=== PATIENT | male | born 1985 | race Hispanic/Latino ===

== ENCOUNTER 2019-06-22 13:11 | Emergency (ER) | payer SELFPAY ==
[2019-06-22] MEDS ORDERED: AMOX/K CLAV 875 MG TAB ONE (14:23)
[2019-06-22] MEDS ORDERED: TETANUS & DIPHTHERIA TOX,ADULT 0.5 ML VIAL ONE (14:24)
--- NOTE | 2019-06-22 14:47 | RAD REPORT ---
EXAM DESCRIPTION: RAD - Forearm Left - 06/22/2019 2:41 pm CLINICAL HISTORY: Pain;Animal bite COMPARISON: No comparisons FINDINGS: Soft tissue swelling is seen about the forearm. No fracture or foreign body is evident.
--- NOTE | 2019-06-22 14:52 | ER ---
Nurse's Notes [facility] Name: Santos Francisco Age: 33 yrs Sex: Male : 1985 Arrival Date: 06/22/2019 Time: 13:14 Bed 15 Private MD: Diagnosis: Bitten by dog;Puncture wound without foreign body of left forearm Presentation: 06/22 13:15 Presenting complaint: EMS states: DOG BITES TO BUE FROM KNOWN ANIMAL. ANIMAL CONTROL ON bp SCENE. Transition of care: patient was not received from another setting of care. Onset of symptoms is unknown. Risk Assessment: Do you want to hurt yourself or someone else? Patient reports no desire to harm self or others. Initial Sepsis Screen: Does the patient meet any 2 criteria? No. Patient's initial sepsis screen is negative. Does the patient have a suspected source of infection? No. Patient's initial sepsis screen is negative. Care prior to arrival: None. 13:15 Method Of Arrival: EMS: [facility] bp 13:15 Acuity: OUSMANE 4 bp Triage Assessment: 13:17 Bite description: bite sustained to right arm and left arm by a dog, animal bp information: vaccination(s) is current. General: Appears in no apparent distress. comfortable, Behavior is cooperative, appropriate for age, anxious. Pain: Complains of pain in right arm and left arm. EENT: No deficits noted. Neuro: No deficits noted. Cardiovascular: No deficits noted. Respiratory: No deficits noted. GI: No signs and/or symptoms were reported involving the gastrointestinal system. : No signs and/or symptoms were reported regarding the genitourinary system. Derm: No deficits noted. Musculoskeletal: No deficits noted. Historical: - Allergies: 13:17 No Known Allergies; bp - Home Meds: 13:17 None [Active]; bp - PMHx: 13:17 None; bp - PSHx: 13:17 None; bp - Immunization history:: Last tetanus immunization: unknown. - Social history:: Smoking status: unknown. - Ebola Screening: : No symptoms or risks identified at this time. Screenin:21 Abuse screen: Denies threats or abuse. Denies injuries from another. Nutritional bp screening: No deficits noted. Tuberculosis screening: No symptoms or risk factors identified. Fall Risk None identified. Assessment: 13:15 General: SEE TRIAGE NOTE. Derm: Skin is intact, is healthy with good turgor, Skin is bp pink, warm \T\ dry. Injury Description: Bite sustained to left arm and right arm caused by a dog, is superficial. 14:40 Reassessment: WOUND CARE COMPLETED. NO ACTIVE BLEEDING. REPORT BY ANIMAL CONTROL bp COMPLETED. Vital Signs: 13:15 BP 136 / 78; Pulse 85; Resp 16; Temp 98.2(O); Pulse Ox 100% ; Weight 108.86 kg; Height bp 5 ft. 11 in. (180.34 cm); 14:42 BP 131 / 86; Pulse 70; Resp 16; Pulse Ox 98% ; bp 13:15 Body Mass Index 33.47 (108.86 kg, 180.34 cm) bp ED Course: 13:14 Patient arrived in ED. bp 13:15 Arm band placed on. bp 13:16 Triage completed. bp 13:16 Israel Duarte FNP-C is PHCP. la1 13:16 Duncan Brown MD is Attending Physician. la1 13:21 Patient has correct armband on for positive identification. Bed in low position. Call bp light in reach. Side rails up X2. 13:27 PHCP role handed off by Israel Duarte FNP-C snw 13:27 Keara Tabares FNP-C is PHCP. snw 13:58 Александр Montesinos, RN is Primary Nurse. bp 14:41 Forearm Left XRAY In Process Unspecified. EDMS 14:41 Wound care: to puncture located on left arm was cleaned with Hibiclens, dressed with bp Neosporin, Patient tolerated well. 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 Exp: bp 05/06/2021. Lot #: [id number]. } Route: IM; Site: right deltoid; 14:00 Drug: Augmentin 875 mg Route: PO; bp Outcome: 14:51 Discharge ordered by . snw 15:05 Patient left the ED. bd Signatures: Dispatcher [employer] EDMS Dulce Maria Ramirez Keara Tabares FNP-C FNP-Csnw Israel Duarte FNP-C FNP-Cla1 Александр Montesinos, RN RN bp Heavenly De La Rosa lt1 Corrections: (The following items were deleted from the chart) 13:19 13:15 BP 136 / 78; Pulse 85bpm; Resp 16bpm; Pulse Ox 100%; Temp 98.2F Oral; lt1 bp
--- NOTE | 2019-06-22 14:52 | EDPHYS ---
Physician Documentation [facility] Name: Santos Francisco Age: 33 yrs Sex: Male : 1985 Arrival Date: 06/22/2019 Time: 13:14 Bed 15 Private MD: ED Physician Duncan Brown HPI: 06/22 14:05 This 33 yrs old Male presents to ER via EMS with complaints of Dog Bite. snw 14:05 The patient was bitten on the dorsal aspect of left forearm and palmar aspect of left snw forearm, by a dog, while trying to stop animals from fighting, at home. Onset: The symptoms/episode began/occurred suddenly, just prior to arrival. Animal information: The animal was reported to appear healthy. The animal is known and can be quarantined, Animal control has been notified. Secondary to the bite the patient reports multiple puncture wounds, that are deep. Associated signs and symptoms: The patient has no apparent associated signs or symptoms. Severity of symptoms: At their worst the symptoms were moderate. The patient has not experienced similar symptoms in the past. The patient has not recently seen a physician. Historical: - Allergies: 13:17 No Known Allergies; bp - Home Meds: 13:17 None [Active]; bp - PMHx: 13:17 None; bp - PSHx: 13:17 None; bp - Immunization history:: Last tetanus immunization: unknown. - Social history:: Smoking status: unknown. - Ebola Screening: : No symptoms or risks identified at this time. ROS: 14:03 Constitutional: Negative for fever, chills, and weight loss, Eyes: Negative for injury, snw pain, redness, and discharge, ENT: Negative for injury, pain, and discharge, Neck: Negative for injury, pain, and swelling, Cardiovascular: Negative for chest pain, palpitations, and edema, Respiratory: Negative for shortness of breath, cough, wheezing, and pleuritic chest pain, Abdomen/GI: Negative for abdominal pain, nausea, vomiting, diarrhea, and constipation, Back: Negative for injury and pain, : Negative for injury, bleeding, discharge, and swelling, MS/Extremity: Negative for injury and deformity, Neuro: Negative for headache, weakness, numbness, tingling, and seizure, Psych: Negative for depression, anxiety, suicide ideation, homicidal ideation, and hallucinations. 14:03 Skin: Positive for puncture, of the dorsal aspect of left forearm and palmar aspect of left forearm. Exam: 14:02 Constitutional: This is a well developed, well nourished patient who is awake, alert, snw and in no acute distress. Head/Face: Normocephalic, atraumatic. Eyes: Pupils equal round and reactive to light, extra-ocular motions intact. Lids and lashes normal. Conjunctiva and sclera are non-icteric and not injected. Cornea within normal limits. Periorbital areas with no swelling, redness, or edema. ENT: Nares patent. No nasal discharge, no septal abnormalities noted. Tympanic membranes are normal and external auditory canals are clear. Oropharynx with no redness, swelling, or masses, exudates, or evidence of obstruction, uvula midline. Mucous membranes moist. Neck: Trachea midline, no thyromegaly or masses palpated, and no cervical lymphadenopathy. Supple, full range of motion without nuchal rigidity, or vertebral point tenderness. No Meningismus. Chest/axilla: Normal chest wall appearance and motion. Nontender with no deformity. No lesions are appreciated. Cardiovascular: Regular rate and rhythm with a normal S1 and S2. No gallops, murmurs, or rubs. Normal PMI, no JVD. No pulse deficits. Respiratory: Lungs have equal breath sounds bilaterally, clear to auscultation and percussion. No rales, rhonchi or wheezes noted. No increased work of breathing, no retractions or nasal flaring. Abdomen/GI: Soft, non-tender, with normal bowel sounds. No distension or tympany. No guarding or rebound. No evidence of tenderness throughout. Back: No spinal tenderness. No costovertebral tenderness. Full range of motion. MS/ Extremity: Pulses equal, no cyanosis. Neurovascular intact. Full, normal range of motion. Neuro: Awake and alert, GCS 15, oriented to person, place, time, and situation. Cranial nerves II-XII grossly intact. Motor strength 5/5 in all extremities. Sensory grossly intact. Cerebellar exam normal. Normal gait. Psych: Awake, alert, with orientation to person, place and time. Behavior, mood, and affect are within normal limits. 14:02 Skin: Appearance: normal except for affected area, injury, bite(s), deep, of the dorsal aspect of left forearm and palmar aspect of left forearm, puncture(s), that are deep. Vital Signs: 13:15 BP 136 / 78; Pulse 85; Resp 16; Temp 98.2(O); Pulse Ox 100% ; Weight 108.86 kg; Height bp 5 ft. 11 in. (180.34 cm); 14:42 BP 131 / 86; Pulse 70; Resp 16; Pulse Ox 98% ; bp 13:15 Body Mass Index 33.47 (108.86 kg, 180.34 cm) bp MDM: 13:16 Patient medically screened. la1 14:52 Data reviewed: vital signs, nurses notes. Data interpreted: Pulse oximetry: on room air snw is 98 %. Interpretation: normal. Counseling: I had a detailed discussion with the patient and/or guardian regarding: the historical points, exam findings, and any diagnostic results supporting the discharge/admit diagnosis, the presence of at least one elevated blood pressure reading (>120/80) during this emergency department visit, radiology results, the need for outpatient follow up, to return to the emergency department if symptoms worsen or persist or if there are any questions or concerns that arise at home. Special discussion: I have referred the patient to see his PCP for further evaluation of high blood pressure. I discussed in detail with the patient the higher chance of wound infection based on his presenting history. Based on the history and exam findings, there is no indication for further emergent testing or inpatient evaluation. I discussed with the patient/guardian the need to see the primary care provider for further evaluation of the symptoms. 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 Exp: bp 05/06/2021. Lot #: [id number]. } Route: IM; Site: right deltoid; 14:00 Drug: Augmentin 875 mg Route: PO; bp Disposition: 16:42 Co-signature as Attending Physician, Duncan Brown MD I agree with the assessment and riley plan of care. Disposition: 06/22/19 14:51 Discharged to Home. Impression: Bitten by dog, Puncture wound without foreign body of left forearm. - Condition is Stable. - Discharge Instructions: Delayed Wound Closure, Puncture Wound, Wound Care, Animal Bite. - Prescriptions for Augmentin 875- 125 mg Oral Tablet - take 1 tablet by ORAL route every 12 hours for 10 days; 20 tablet. Mobic 7.5 mg Oral Tablet - take 1 tablet by ORAL route once daily take with food; 20 tablet. - Work release form, Medication Reconciliation Form, Thank You Letter, Antibiotic Education, Prescription Opioid Use form. - Follow up: Emergency Department; When: As needed; Reason: Worsening of condition. Follow up: Private Physician; When: 2 - 3 days; Reason: Recheck today's complaints, Continuance of care, Re-evaluation by your physician. Signatures: Dispatcher [employer] EDMS Dulce Maria Ramirez Corey, MD MD cha Therrien, Shelly, TRACTION POWER ENGINEER-C TRACTION POWER ENGINEER-Csnw Israel Duarte, TRACTION POWER ENGINEER-C TRACTION POWER ENGINEER-Cla1 Александр Montesinos, RN RN bp Corrections: (The following items were deleted from the chart) 14:52 14:51 06/22/2019 14:51 Discharged to Home. Impression: Bitten by dog. Condition is snw Stable. Discharge Instructions: Delayed Wound Closure, Puncture Wound, Wound Care, Animal Bite. Prescriptions for Augmentin 875-125 mg Oral Tablet - take 1 tablet by ORAL route every 12 hours for 10 days; 20 tablet, Mobic 7.5 mg Oral Tablet - take 1 tablet by ORAL route once daily take with food; 20 tablet. and Forms are Work release form, Medication Reconciliation Form, Thank You Letter, Antibiotic Education, Prescription Opioid Use. Follow up: Emergency Department; When: As needed; Reason: Worsening of condition. Follow up: Private Physician; When: 2 - 3 days; Reason: Recheck today's complaints, Continuance of care, Re-evaluation by your physician. snw 15:05 14:52 06/22/2019 14:51 Discharged to Home. Impression: Bitten by dog; Puncture wound bd without foreign body of left forearm. Condition is Stable. Discharge Instructions: Delayed Wound Closure, Puncture Wound, Wound Care, Animal Bite. Prescriptions for Augmentin 875-125 mg Oral Tablet - take 1 tablet by ORAL route every 12 hours for 10 days; 20 tablet, Mobic 7.5 mg Oral Tablet - take 1 tablet by ORAL route once daily take with food; 20 tablet. and Forms are Work release form, Medication Reconciliation Form, Thank You Letter, Antibiotic Education, Prescription Opioid Use. Follow up: Emergency Department; When: As needed; Reason: Worsening of condition. Follow up: Private Physician; When: 2 - 3 days; Reason: Recheck today's complaints, Continuance of care, Re-evaluation by your physician. snw
[2019-06-22 15:19] VITALS: TEMP 98.2
[2019-06-22 15:20] VITALS: BP 131/86; O2SAT 98
== END 2019-06-22 15:05 | disposition home or self-care (01) ==
LOC: ER 13:11
DX: S51.832A Puncture wound without foreign body of left forearm, initial encounter (principal); W54.0XXA Bitten by dog, initial encounter; Y93.9 Activity, unspecified; Y92.9 Unspecified place or not applicable; Z23 Encounter for immunization
CPT/HCPCS: 90471; 90714; 99284

== ENCOUNTER 2019-12-10 14:53 | Emergency (ER) | payer SELFPAY ==
[2019-12-10] MEDS ORDERED: MIDAZOLAM HCL 2 MG/2 ML INJ ONE ×2 (15:05→17:18)
[2019-12-10] MEDS ORDERED: HALOPERIDOL LACT 5 MG/ML INJ ONE (15:05)
[2019-12-10] MEDS ORDERED: DIPHENHYDRAMINE 50 MG/ML VIAL ONE (15:05)
[2019-12-10] MEDS ORDERED: ACETAMINOPHEN 500 MG TAB ONE (15:43)
[2019-12-10] MEDS ORDERED: NA CHLORIDE 0.9% 1,000 ML ONE (15:43)
[2019-12-10 15:54] LABS: Absolute Lymphocytes (CBC) 1.1 K/uL (0.7-4.9); Basophils % 0.2 % (0-1.3); Hematocrit 43.5 % (39.6-49.0); Lymphocytes % 12.8 % (15.3-44.8); MPV 8.4 fL (7.6-11.3); RBC Red Blood Cell Count 5.17 M/uL (4.33-5.43)
[2019-12-10 16:03] LABS: Protime INR 1.19
[2019-12-10 16:20] LABS: ALT/SGPT 55 U/L (12-78); AST/SGOT 81 U/L (15-37); Albumin 4.3 g/dL (3.4-5.0); Alkaline Phosphatase 98 U/L (45-117); BUN Blood Urea Nitrogen 19 mg/dL (7-18); Bicarbonate 25 mmol/L (21-32); Bilirubin Direct 0.2 mg/dL (0-0.2); Glucose Level 128 mg/dL (74-106); Protein, Total 7.7 g/dL (6.4-8.2); Sodium Level 140 mmol/L (136-145)
[2019-12-10 16:28] LABS: Urine Blood 2+ (NEG); Urine Glucose NEGATIVE (NEG); Urine Protein 3+ (NEG); Urine Specific Gravity >1.030 (1.005-1.030)
[2019-12-10 16:39] LABS: Barbiturates NEGATIVE (NEGATIVE); Benzodiazepines POSITIVE (NEGATIVE); Cocaine NEGATIVE (NEGATIVE); METHAMPHETAM POSITIVE (NEGATIVE); Methadone NEGATIVE (NEGATIVE); Opiates NEGATIVE (NEGATIVE); Phencyclidine NEGATIVE (NEGATIVE); THC Cannibis POSITIVE (NEGATIVE)
--- NOTE | 2019-12-10 19:00 | EDPHYS ---
Physician Documentation [facility] Name: Santos Francisco Age: 34 yrs Sex: Male : 1985 Arrival Date: 12/10/2019 Time: 14:58 Bed 2 Private MD: ED Physician Trenton Caicedo HPI: 12/09 15:50 This 34 yrs old Male presents to ER via EMS with complaints of Overdose. ma2 15:50 The patient presents to the emergency department after a known overdose, ma2 methamphetamin. Associated signs and symptoms: Pertinent positives: dissociation, aggressive. Severity of symptoms: At their worst the symptoms were severe in the emergency department the symptoms are unchanged. The patient has experienced similar episodes in the past. Historical: - Allergies: 15:13 No Known Allergies; sv - Immunization history:: Adult Immunizations unknown. - Social history:: Smoking status: unknown Patient uses street drugs, Methamphetamine (Meth) Patient/guardian denies using alcohol, street drugs, The patient lives with family. - Family history:: not pertinent. ROS: 15:50 Constitutional: Negative for fever, chills, and weight loss. ma2 15:50 All other systems are negative. Exam: 15:50 Constitutional: This is a well developed, well nourished patient who is awake, alert, ma2 and in no acute distress. Chest/axilla: Normal chest wall appearance and motion. Nontender with no deformity. No lesions are appreciated. Cardiovascular: Regular rate and rhythm with a normal S1 and S2. No gallops, murmurs, or rubs. Normal PMI, no JVD. No pulse deficits. Respiratory: Lungs have equal breath sounds bilaterally, clear to auscultation and percussion. No rales, rhonchi or wheezes noted. No increased work of breathing, no retractions or nasal flaring. Abdomen/GI: Soft, non-tender, with normal bowel sounds. No distension or tympany. No guarding or rebound. No evidence of tenderness throughout. Skin: Warm, dry with normal turgor. Normal color with no rashes, no lesions, and no evidence of cellulitis. MS/ Extremity: Pulses equal, no cyanosis. Neurovascular intact. Full, normal range of motion. Neuro: Awake and alert, GCS 15, oriented to person, place, time, and situation. Cranial nerves II-XII grossly intact. Motor strength 5/5 in all extremities. Sensory grossly intact. Cerebellar exam normal. Normal gait. 15:50 Psych: Behavior/mood is aggressive, Affect is animated, Oriented to person, place, time, Patient has no thoughts/intents to harm self or others. Delusions/hallucinations are not present. Vital Signs: 14:53 BP 193 / 73; Pulse 113; Resp 20; Temp 98.9; Pulse Ox 98% ; sv 15:43 BP 116 / 76; Pulse 87; Resp 14; Pulse Ox 96% on R/A; sv 16:40 BP 109 / 74; Pulse 73; Resp 15; Pulse Ox 97% ; sv 17:00 BP 123 / 85; Pulse 58; Resp 13; Pulse Ox 99% ; sv 17:30 BP 114 / 69; Pulse 77; Resp 21; Temp 98; Pulse Ox 96% ; sv 18:00 BP 120 / 73; Pulse 73; Resp 19; Pulse Ox 97% ; sv 19:00 BP 130 / 67; Pulse 71; Resp 21; Pulse Ox 97% on R/A; sv 20:00 BP 116 / 74; Pulse 67; Resp 18; Pulse Ox 99% on R/A; wh MDM: 15:06 Patient medically screened. [facility] 15:50 Differential diagnosis: Ingestion/exposure to methamphetamin polypharmacy, over or2 medication, hypoglycemia. 18:59 Data reviewed: vital signs, nurses notes. Counseling: I had a detailed discussion with [facility] the patient and/or guardian regarding: the historical points, exam findings, and any diagnostic results supporting the discharge/admit diagnosis, the presence of at least one elevated blood pressure reading (>120/80) during this emergency department visit, the need for outpatient follow up. Response to treatment: the patient's symptoms have markedly improved after treatment. 12/09 15:33 Order name: Acetaminophen [facility] 12/09 15:33 Order name: Basic Metabolic Panel [facility] 12/09 15:33 Order name: CBC with Diff [facility] 12/09 15:33 Order name: ETOH Level [facility] 12/09 15:33 Order name: Hepatic Function [facility] 12/09 15:33 Order name: PT-INR [facility] 12/09 15:33 Order name: Ptt, Activated; Complete Time: 17:40 [facility] 12/09 15:33 Order name: Salicylate; Complete Time: 17:40 ma2 12/09 15:33 Order name: Urine Drug Screen; Complete Time: 17:40 ma2 12/09 15:33 Order name: Acetaminophen Level; Complete Time: 17:40 EDMS 12/09 15:33 Order name: Basic Metabolic Panel; Complete Time: 17:40 EDMS 12/09 15:33 Order name: CBC with Automated Diff; Complete Time: 17:40 EDMS 12/09 15:33 Order name: Alcohol Serum/Plasma; Complete Time: 17:40 EDMS 12/09 15:33 Order name: Liver (Hepatic) Function; Complete Time: 17:40 EDMS 12/09 15:33 Order name: EKG; Complete Time: 15:34 ma2 12/09 15:33 Order name: EKG - Nurse/Tech; Complete Time: 15:53 ma2 12/09 15:33 Order name: IV Saline Lock; Complete Time: 15:53 ma2 12/09 15:33 Order name: Labs collected and sent; Complete Time: 15:53 ma2 12/09 15:33 Order name: Urine Dipstick-Ancillary (obtain specimen); Complete Time: 16:14 ma2 12/09 15:33 Order name: Protime (+INR); Complete Time: 17:40 EDMS 04 16:22 Order name: Urine Dipstick--Ancillary (enter results); Complete Time: 17:40 em1 Administered Medications: 15:10 Drug: Versed 2 mg Route: IM; Site: left deltoid; ph 15:27 Follow up: Response: No adverse reaction sv 15:13 Drug: Haloperidol Lactate 5 mg Route: IM; Site: right deltoid; ph 15:27 Follow up: Response: No adverse reaction sv 15:14 Drug: Benadryl 50 mg Route: IM; Site: right deltoid; ph 15:27 Follow up: Response: No adverse reaction sv 17:21 Drug: Versed 2 mg Route: IVP; Site: left hand; ph 20:10 Follow up: Response: No adverse reaction; RASS: Alert and Calm (0) wh Disposition: 12/10/19 18:59 Discharged to Home. Impression: Other psychoactive substance abuse with intoxication. - Condition is Stable. - Discharge Instructions: Substance Use Disorder. - Medication Reconciliation Form, Thank You Letter, Antibiotic Education, Prescription Opioid Use form. - Follow up: Private Physician; When: Tomorrow; Reason: Continuance of care. Signatures: Dispatcher [employer] Echo De Leon, MILIND RN Nidia Mendieta RN RN ph Habalo, Winsy wh Alzahri, Mohammad, MD MD ma2 Corrections: (The following items were deleted from the chart) 20:10 18:59 12/10/2019 18:59 Discharged to Home. Impression: Other psychoactive substance wh abuse with intoxication. Condition is Stable. Discharge Instructions: Substance Use Disorder. Forms are Medication Reconciliation Form, Thank You Letter, Antibiotic Education, Prescription Opioid Use. Follow up: Private Physician; When: Tomorrow; Reason: Continuance of care. ma2
--- NOTE | 2019-12-10 19:00 | ER ---
Nurse's Notes [facility] Name: Santos Francisco Age: 34 yrs Sex: Male : 1985 Arrival Date: 12/10/2019 Time: 14:58 Bed 2 Private MD: Diagnosis: Other psychoactive substance abuse with intoxication Presentation: 12/09 14:52 Chief complaint: EMS states: found on the ground at [facility], staff was trying to get sv him to leave but he wouldn't. [place] [employer] on scene and pt was tazed and it did not affect him. Pt admitted to meth use. BP 160/100 HR-117 98\T\ RA. Coronavirus screen: Pt unable to answer these questions at this time, pt is confused. Ebola Screen: Unable to complete the Ebola screening because: The patient is disoriented. 14:52 Method Of Arrival: EMS: [facility] sv 14:53 Initial Sepsis Screen: Does the patient meet any 2 criteria? HR > 90 bpm. No. Patient's sv initial sepsis screen is negative. Does the patient have a suspected source of infection? No. Patient's initial sepsis screen is negative. Risk Assessment: Do you want to hurt yourself or someone else? Unable to obtain. Onset of symptoms was December 10, 2019. 14:53 Acuity: OUSMANE 2 sv Triage Assessment: 14:52 General: Appears comfortable, well developed, Pt has no clothes on. Behavior is sv agitated. Pain: Unable to use pain scale. Patient is disoriented. Patient appears agitated, FLACC scale score is 0 out of 10. Neuro: Level of Consciousness is confused, Oriented to none Pt refuses to answer. Moves all extremities. Cardiovascular: Rhythm is sinus tachycardia. Respiratory: Airway is patent Respiratory effort is even, unlabored, Respiratory pattern is regular, symmetrical. Derm: Skin is clammy, Skin is normal. Historical: - Allergies: 15:13 No Known Allergies; sv - Immunization history:: Adult Immunizations unknown. - Social history:: Smoking status: unknown Patient uses street drugs, Methamphetamine (Meth) Patient/guardian denies using alcohol, street drugs, The patient lives with family. - Family history:: not pertinent. Screenin:00 Abuse screen: Unable to obtain, pt confused. Nutritional screening: Unable to obtain, sv pt confused . Tuberculosis screening: Unable to obtain, pt confused . Fall Risk No fall in past 12 months (0 pts). No secondary diagnosis (0 pts). No IV (0 pts). Ambulatory Aid- None/Bed Rest/Nurse Assist (0 pts). Gait- Normal/Bed Rest/Wheelchair (0 pts) Mental Status- Overestimates/Forgets Limitations (15 pts.). Total Nash Fall Scale indicates No Risk (0-24 pts). Assessment: 15:17 Reassessment: Poison control called for OD. Spoke with Loretta, case #[id number]. They sv recommend to watch pt 6-8 hrs, monitor vitals, mental status. Obtain toxic workup, if c/o CP get cardiac enzymes. If pt is AMS, get a CT head. Benzo's prn. 16:38 Reassessment: Patient appears in no apparent distress at this time. Pt asleep at this sv time, appears in no respiratory distress. Will continue to monitor. 17:12 Reassessment: Pt becoming agitated and yelling out. [place] [employer] remains at the bedside. sv 18:06 Reassessment: Patient appears in no apparent distress at this time. Pt asleep at this sv time, appears in no respiratory distress noted. Will continue to monitor. 19:11 Reassessment: Patient appears in no apparent distress at this time. Pt asleep at this wh time with no signs of distress noted. notified Officer of DC order but per MD will need to be monitored for another hour before DC. Officer informed. 20:05 Reassessment: Patient appears in no apparent distress at this time. Patient and/or family updated on plan of care and expected duration. Pain level reassessed. Patient is alert, oriented x 3, equal unlabored respirations, skin warm/dry/pink. Pt awake, alert x4, able to follows commands, drunk 2 cups of water and was able to ambulate by himself. Overdose: 14:52 Patient took Methamphetamines. Overdose occurred unknown. sv Vital Signs: 14:53 BP 193 / 73; Pulse 113; Resp 20; Temp 98.9; Pulse Ox 98% ; sv 15:43 BP 116 / 76; Pulse 87; Resp 14; Pulse Ox 96% on R/A; sv 16:40 BP 109 / 74; Pulse 73; Resp 15; Pulse Ox 97% ; sv 17:00 BP 123 / 85; Pulse 58; Resp 13; Pulse Ox 99% ; sv 17:30 BP 114 / 69; Pulse 77; Resp 21; Temp 98; Pulse Ox 96% ; sv 18:00 BP 120 / 73; Pulse 73; Resp 19; Pulse Ox 97% ; sv 19:00 BP 130 / 67; Pulse 71; Resp 21; Pulse Ox 97% on R/A; sv 20:00 BP 116 / 74; Pulse 67; Resp 18; Pulse Ox 99% on R/A; wh ED Course: 14:52 Patient has correct armband on for positive identification. Placed in gown. Bed in low sv position. Side rails up X2. [place] [employer] at the bedside. Pt is cuffed behind his back at this time. director of religious activities on. Pulse ox on. NIBP on. 14:58 Patient arrived in ED. ma2 14:58 Echo Prabhakar RN is Primary Nurse. ma2 15:06 Trenton Caicedo MD is Attending Physician. ma2 15:13 Triage completed. sv 15:13 Arm band placed on. sv 15:53 Acetaminophen Sent. sv 15:53 Basic Metabolic Panel Sent. sv 15:53 CBC with Diff Sent. sv 15:53 ETOH Level Sent. sv 15:54 Hepatic Function Sent. sv 15:54 PT-INR Sent. sv 16:13 Straight cath inserted, using sterile technique, 14 Fr. Specimen obtained. Returned sv tamir urine. Patient tolerated well. 18:59 Report given to Matthew RN and Jay RN. sv 19:02 Primary Nurse role handed off by Echo Prabhakar RN sv 20:07 No provider procedures requiring assistance completed. IV discontinued, intact, wh bleeding controlled, No redness/swelling at site. Administered Medications: 15:10 Drug: Versed 2 mg Route: IM; Site: left deltoid; ph 15:27 Follow up: Response: No adverse reaction sv 15:13 Drug: Haloperidol Lactate 5 mg Route: IM; Site: right deltoid; ph 15:27 Follow up: Response: No adverse reaction sv 15:14 Drug: Benadryl 50 mg Route: IM; Site: right deltoid; ph 15:27 Follow up: Response: No adverse reaction sv 17:21 Drug: Versed 2 mg Route: IVP; Site: left hand; ph 20:10 Follow up: Response: No adverse reaction; RASS: Alert and Calm (0) Outcome: 18:59 Discharge ordered by MD. vega 20:09 Discharged to Law Enforcement 20:09 Condition: stable 20:09 Discharge instructions given to patient, police, Instructed on discharge instructions, follow up and referral plans. POC Demonstrated understanding of instructions, follow-up care, POC 20:10 Patient left the ED. Signatures: Echo Prabhakar RN RN Nidia Acevedo RN RN [facility] Trenton Caicedo MD MD ma2
[2019-12-10 20:22] VITALS: TEMP 98
[2019-12-10 20:26] VITALS: BP 116/74; O2SAT 99
== END 2019-12-10 20:10 | disposition home or self-care (01) ==
LOC: ER 14:53
DX: F19.129 Other psychoactive substance abuse with intoxication, unspecified (principal)
CPT/HCPCS: 36415; 51702; 80048; 80076; 80307; 80320; 80329; 81003; 85025; 85610; 85730; 93005; 96372; 96374; 99284; J1200; J1630; J2250; J7030

== ENCOUNTER 2021-05-09 14:18 | Emergency (ER) | payer SELFPAY ==
--- NOTE | 2021-05-09 16:05 | EDPHYS ---
Physician Documentation [facility] Name: Santos Francisco Age: 35 yrs Sex: Male : 1985 Arrival Date: 05/09/2021 Time: 14:28 Bed Waiting Private MD: ED Physician Harley Villeda HPI: 05/09 15:03 This 35 yrs old Male presents to ER via Ambulatory with complaints of r/o m covid, Wound Check. 15:03 This is a 35-year-old male with no known chronic medical condition presents emerged [facility] department with complaints of congestion and fatigue that he is concerned may be due to Covid. Patient states that he also spent the past week taking methamphetamine.. Historical: - Allergies: 15:09 No Known Allergies; iw - Home Meds: 15:09 None [Active]; iw - PMHx: 15:09 None; iw ROS: 15:03 Constitutional: Positive for body aches, chills. [facility] 15:03 Respiratory: Positive for cough. 15:03 All other systems are negative. Exam: 15:03 Constitutional: This is a well developed, well nourished patient who is awake, alert, jmm and in no acute distress. Head/Face: atraumatic. Eyes: EOMI, no conjunctival erythema appreciated ENT: Moist Mucus Membranes Neck: Trachea midline, Supple Chest/axilla: Normal chest wall appearance and motion. Cardiovascular: Regular rate and rhythm. No edema appreciated Respiratory: Normal respirations, no respiratory distress appreciated Abdomen/GI: Non distended, soft Back: Normal ROM Skin: General appearance color normal MS/ Extremity: Moves all extremities, no obvious deformities appreciated, no edema noted to the lower extremities Neuro: Awake and alert, normal gait Psych: Behavior is normal, Mood is normal, Patient is cooperative and pleasant Vital Signs: 15:10 BP 135 / 73; Pulse 96; Resp 16; Temp 97.3; Pulse Ox 98% on R/A; iw MDM: 15:32 Patient medically screened. [facility] 16:02 Data reviewed: vital signs, nurses notes. Counseling: I had a detailed discussion with [facility] the patient and/or guardian regarding:. ED course: Patient eloped from the ED prior to final disposition.. Administered Medications: No medications were administered Disposition: 17:33 Co-signature as Attending Physician, Harley Villeda MD I agree with the assessment and kdr plan of care. Disposition Summary: 05/09/21 16:04 Eloped Disposition: after being seen by provider eloy Reason: unknown jmm Condition: Stable jmm Diagnosis - Person with feared health complaint in whom no diagnosis is made jmm Followup: jmm - With: Private Physician - When: 2 - 3 days - Reason: Recheck today's complaints, Continuance of care, Re-evaluation by your physician Signatures: Dispatcher [employer] Harley Sinclair MD MD kdr Mickail, Joel, PA PA jmm Williams, Irene, RN RN iw
--- NOTE | 2021-05-09 16:05 | ER ---
Nurse's Notes [facility] Name: Santos Francisco Age: 35 yrs Sex: Male : 1985 Arrival Date: 05/09/2021 Time: 14:28 Bed Waiting Private MD: Diagnosis: Person with feared health complaint in whom no diagnosis is made Presentation: 05/09 15:08 Chief complaint: Patient states: I was using meth for a week and stopped 4 days ago, iw but is also worried he might have COVID. Coronavirus screen: At this time, the client does not indicate any symptoms associated with coronavirus-19. Ebola Screen: Patient negative for fever greater than or equal to 101.5 degrees Fahrenheit, and additional compatible Ebola Virus Disease symptoms Patient denies exposure to infectious person. Patient denies travel to an Ebola-affected area in the 21 days before illness onset. No symptoms or risks identified at this time. Initial Sepsis Screen: Does the patient meet any 2 criteria? No. Patient's initial sepsis screen is negative. Does the patient have a suspected source of infection? No. Patient's initial sepsis screen is negative. Risk Assessment: Do you want to hurt yourself or someone else? Patient reports no desire to harm self or others. Onset of symptoms was May 09, 2021. 15:08 Method Of Arrival: Ambulatory iw 15:08 Acuity: OUSMANE 4 iw Historical: - Allergies: 15:09 No Known Allergies; iw - Home Meds: 15:09 None [Active]; iw - PMHx: 15:09 None; iw Screenin:03 Abuse screen: Denies threats or abuse. Denies injuries from another. Nutritional iw screening: No deficits noted. Tuberculosis screening: No symptoms or risk factors identified. Fall Risk None identified. Assessment: 15:15 Reassessment: pt not in lobby. iw Vital Signs: 15:10 BP 135 / 73; Pulse 96; Resp 16; Temp 97.3; Pulse Ox 98% on R/A; iw ED Course: 14:28 Patient arrived in ED. as 15:01 Jason Petersen PA is PHCP. [facility] 15:01 Harley Villeda MD is Attending Physician. [facility] 15:09 Triage completed. iw 15:10 Arm band placed on. iw 15:15 Otilia Davis, RN is Primary Nurse. iw Administered Medications: No medications were administered Outcome: 16:11 Eloped from waiting room, after seeing physician iw 16:12 Patient left the ED. iw Signatures: Jason Petersen PA PA jmm Martinez, Amelia as Otilia Davis, RN RN iw
[2021-05-09 16:17] VITALS: BP 135/73; TEMP 97.3; O2SAT 98
== END 2021-05-09 16:12 | disposition left against medical advice (07) ==
LOC: ER 14:18
DX: Z71.1 Person with feared health complaint in whom no diagnosis is made (principal)
CPT/HCPCS: 99281

== ENCOUNTER 2021-06-30 18:47 | Emergency (ER) | payer SELFPAY ==
[2021-06-30] MEDS ORDERED: LORazepam 2 MG/ML VIAL ONE ×2 (19:17→20:09)
[2021-06-30 19:38] LABS: Absolute Lymphocytes (CBC) 2.8 K/uL (0.7-4.9); Hematocrit 50.1 % (39.6-49.0); Lymphocytes % 24.4 % (15.3-44.8); MPV 8.1 fL (7.6-11.3); RBC Red Blood Cell Count 5.85 M/uL (4.33-5.43)
[2021-06-30 19:43] LABS: Protime INR 1.16
[2021-06-30 19:48] LABS: Albumin 4.1 g/dL (3.4-5.0); BUN Blood Urea Nitrogen 13 mg/dL (7-18); Bicarbonate 29 mmol/L (21-32); Glucose Level 95 mg/dL (74-106); Potassium 3.5 mmol/L (3.5-5.1); Sodium Level 141 mmol/L (136-145)
[2021-06-30] MEDS ORDERED: NA CHLORIDE 0.9% 1,000 ML ONE (20:04)
--- NOTE | 2021-06-30 21:11 | EDPHYS ---
Physician Documentation [facility] Name: Santos Francisco Age: 35 yrs Sex: Male : 1985 Arrival Date: 06/30/2021 Time: 18:47 Bed 18 Private MD: ED Physician Levon Galvan HPI: 06/30 19:02 This 35 yrs old Male presents to ER via EMS with complaints of Psych Problem. pm1 19:02 The patient presents to the emergency department with psychosis. Onset: The pm1 symptoms/episode began/occurred today. Past psychiatric history: Prior diagnosis: bipolar disorder, schizophrenia, Psychiatric medications include: none. Associated signs and symptoms: Pertinent positives; substance abuse. Severity of symptoms: in the emergency department the symptoms are unchanged Pain is currently a 0 / 10. The patient has experienced similar episodes in the past, several times. The patient has not recently seen a physician. Historical: - PMHx: 18:58 Bipolar disorder; Schizophrenia; Seizure; ss - Immunization history:: Adult Immunizations unknown. - Social history:: Smoking status: unknown. ROS: 19:02 Constitutional: Negative for fever, chills, and weight loss, Cardiovascular: Negative pm1 for chest pain, palpitations, and edema, Respiratory: Negative for shortness of breath, cough, wheezing, and pleuritic chest pain, MS/Extremity: Negative for injury and deformity, Skin: Negative for injury, rash, and discoloration. 19:02 Psych: Negative for homicidal ideation, suicide gesture, suicidal ideation. 19:02 All other systems are negative. Exam: 19:02 Constitutional: This is a well developed, well nourished patient who is awake, alert, pm1 and in no acute distress. Head/Face: Normocephalic, atraumatic. 19:02 Skin: Warm, dry with normal turgor. Normal color with no rashes, no lesions, and no evidence of cellulitis. MS/ Extremity: Pulses equal, no cyanosis. Neurovascular intact. Full, normal range of motion. 19:02 Cardiovascular: Exam negative for acute changes, Rate: normal, Rhythm: regular, Pulses: no pulse deficits are appreciated. 19:02 Respiratory: Exam negative for acute changes, respiratory distress, shortness of breath, Breath sounds: are clear throughout. 19:02 Neuro: Exam negative for acute changes, Orientation: is normal, Motor: moves all fours, Gait: is steady, at a normal pace, without difficulty. 19:02 Psych: Behavior/mood is cooperative, Affect is animated, Oriented to person, place, time, Patient has no thoughts/intents to harm self or others. Vital Signs: 18:47 BP 127 / 85; Pulse 106; Resp 16; Temp 98.6; Pulse Ox 100% ; Weight 118.39 kg; Height 5 bp ft. 10 in. (177.80 cm); 18:47 Body Mass Index 37.45 (118.39 kg, 177.80 cm) bp MDM: 18:54 Patient medically screened. pm1 21:08 Data reviewed: vital signs. Data interpreted: Pulse oximetry: on room air is 100 %. pm1 Interpretation: normal. Counseling: I had a detailed discussion with the patient and/or guardian regarding: the historical points, exam findings, and any diagnostic results supporting the discharge/admit diagnosis, the need for outpatient follow up, for definitive care, a psychiatrist, to return to the emergency department if symptoms worsen or persist or if there are any questions or concerns that arise at home. 06/30 18:49 Order name: Acetaminophen rn 06/30 18:49 Order name: Basic Metabolic Panel rn 06/30 18:49 Order name: CBC with Diff; Complete Time: 19:45 06/30 18:49 Order name: ETOH Level; Complete Time: 19:52 rn 06/30 18:49 Order name: Hepatic Function; Complete Time: 21:55 06/30 18:49 Order name: PT-INR; Complete Time: 19:45 rn 06/30 18:49 Order name: Ptt, Activated; Complete Time: 19:45 rn 06/30 18:49 Order name: Salicylate; Complete Time: 21:28 rn 06/30 18:49 Order name: Urine Drug Screen; Complete Time: 21:28 rn 06/30 18:49 Order name: Acetaminophen Level; Complete Time: 21:55 EDMS 06/30 18:49 Order name: Basic Metabolic Panel; Complete Time: 21:55 EDMS 06/30 18:49 Order name: EKG; Complete Time: 18:50 rn 06/30 18:49 Order name: EKG - Nurse/Tech rn 06/30 18:49 Order name: IV Saline Lock rn 06/30 18:49 Order name: Labs collected and sent rn 06/30 18:49 Order name: Suicide Screening ([place]) rn 06/30 18:49 Order name: Urine Dipstick-Ancillary (obtain specimen) rn Administered Medications: 19:18 Drug: Ativan (LORazepam) 1 mg Route: IVP; Site: right antecubital; lg3 19:19 Follow up: Response: No adverse reaction lg3 20:10 Drug: Ativan (LORazepam) 1 mg Route: IVP; Site: right antecubital; lg3 21:59 Follow up: Response: No adverse reaction lg3 21:58 Drug: NS 0.9% 1000 ml Route: IV; Rate: 1000 ml; Site: right antecubital; lg3 21:58 Follow up: Response: No adverse reaction; IV Status: Completed infusion; IV Intake: lg3 1000ml Disposition Summary: 06/30/21 21:10 Discharge Ordered Location: Home pm1 Problem: new pm1 Symptoms: have improved pm1 Condition: Stable pm1 Diagnosis - Substance abuse psychosis pm1 - Methamphetamine abuse pm1 - Cannabis abuse pm1 - Benzodiazapine abuse pm1 Followup: pm1 - With: Emergency Department - When: As needed - Reason: Worsening of condition Followup: pm1 - With: Private Physician - When: 2 - 3 days - Reason: Recheck today's complaints, Continuance of care, Re-evaluation by your physician Discharge Instructions: - Discharge Summary Sheet pm1 - Psychosis pm1 - Illegal Drug Use Information, Adult pm1 Forms: - Medication Reconciliation Form pm1 - Thank You Letter pm1 - Antibiotic Education pm1 - Prescription Opioid Use pm1 Addendum: 07/02/2021 19:02 Co-signature as Attending Physician, Levon Galvan MD. r n Signatures: Dispatcher [employer] EDLevon Zarate MD MD rn Smirch, Shelby, RN RN ss Marinas, Patrick, NP JAVA GROOVY DEVELOPER pm1 Александр Montesinos RN RN bp Gibson, Lacie, RN RN lg3 Corrections: (The following items were deleted from the chart) 06/30 21:32 21:10 Unspecified psychosis not due to a substance or known physiological condition pm1 pm1
--- NOTE | 2021-06-30 21:11 | ER ---
Nurse's Notes [facility] Name: Santos Francisco Age: 35 yrs Sex: Male : 1985 Arrival Date: 06/30/2021 Time: 18:47 Bed 18 Private MD: Diagnosis: Substance abuse psychosis;Methamphetamine abuse;Cannabis abuse;Benzodiazapine abuse Presentation: 06/30 18:47 Chief complaint: EMS states: THE FAMILY CALLED SAYING HE WAS HAVING A PSYCH PROBLEM. HE bp WAS LAYING ON THE GROUND CRYING AND THE FAMILY WAS HEAVILY INTOXICATED. Coronavirus screen: At this time, the client does not indicate any symptoms associated with coronavirus-19. Ebola Screen: No symptoms or risks identified at this time. Initial Sepsis Screen: Does the patient meet any 2 criteria? No. Patient's initial sepsis screen is negative. Does the patient have a suspected source of infection? No. Patient's initial sepsis screen is negative. Risk Assessment: Do you want to hurt yourself or someone else? Patient reports no desire to harm self or others. Onset of symptoms is unknown. 18:47 Method Of Arrival: EMS: [facility] bp 18:47 Acuity: OUSMANE 2 bp Triage Assessment: 18:47 General: Appears in no apparent distress. obese, unkempt, Behavior is anxious, bp uncooperative. Pain: Denies pain. EENT: No deficits noted. Neuro: Level of Consciousness is awake, alert, Oriented to REFUSING TO ANSWER. Cardiovascular: No deficits noted. Respiratory: No deficits noted. GI: No signs and/or symptoms were reported involving the gastrointestinal system. : No signs and/or symptoms were reported regarding the genitourinary system. Derm: No deficits noted. Musculoskeletal: No deficits noted. Historical: - PMHx: 18:58 Bipolar disorder; Schizophrenia; Seizure; ss - Immunization history:: Adult Immunizations unknown. - Social history:: Smoking status: unknown. Screenin:51 Abuse screen: Denies threats or abuse. Denies injuries from another. Nutritional bp screening: No deficits noted. Tuberculosis screening: No symptoms or risk factors identified. Fall Risk None identified. Assessment: 18:51 General: SEE TRIAGE NOTE. bp 21:59 General: Behavior is anxious, uncooperative. Pain: Denies pain. Neuro: No deficits lg3 noted. Level of Consciousness is awake, alert, resistant to care. Cardiovascular: No deficits noted. Capillary refill < 3 seconds Patient's skin is warm and dry. Respiratory: Respiratory effort is even, unlabored, Respiratory pattern is regular, symmetrical. GI: No deficits noted. No signs and/or symptoms were reported involving the gastrointestinal system. : No deficits noted. No signs and/or symptoms were reported regarding the genitourinary system. EENT: No deficits noted. No signs and/or symptoms were reported regarding the EENT system. Derm: No deficits noted. No signs and/or symptoms reported regarding the dermatologic system. Musculoskeletal: No deficits noted. No signs and/or symptoms reported regarding the musculoskeletal system. 22:00 General: pt combative and uncooperative. resistant to care. pulled iv out from arm and lg3 stated that he was leaving. walked to nurses station and began acting belligerent. LUBE ATTENDANT spoke with pt about plan of care. pt agreed to go back to room until discharge papers were complete. notified family of pt discharge and they agreed to come chart picker pt. once back in the room, pt became uncooperative again. pt stated he "just needed to get out of this building". walked pt out to front entrance and waited for family to arrive. . Vital Signs: 18:47 BP 127 / 85; Pulse 106; Resp 16; Temp 98.6; Pulse Ox 100% ; Weight 118.39 kg; Height 5 bp ft. 10 in. (177.80 cm); 18:47 Body Mass Index 37.45 (118.39 kg, 177.80 cm) bp ED Course: 18:47 Patient arrived in ED. bp 18:47 Arm band placed on. bp 18:49 Triage completed. bp 18:51 Patient has correct armband on for positive identification. Bed in low position. Call bp light in reach. Side rails up X2. 18:54 Omar Yap NP is PHCP. pm1 18:54 Levon Galvan MD is Attending Physician. pm1 18:55 Александр Montesinos, MILIND is Primary Nurse. bp 19:19 Inserted saline lock: 22 gauge in right antecubital area, using aseptic technique. lg3 Blood collected. 22:00 No provider procedures requiring assistance completed. IV discontinued, intact, lg3 bleeding controlled, No redness/swelling at site. Administered Medications: 19:18 Drug: Ativan (LORazepam) 1 mg Route: IVP; Site: right antecubital; lg3 19:19 Follow up: Response: No adverse reaction lg3 20:10 Drug: Ativan (LORazepam) 1 mg Route: IVP; Site: right antecubital; lg3 21:59 Follow up: Response: No adverse reaction lg3 21:58 Drug: NS 0.9% 1000 ml Route: IV; Rate: 1000 ml; Site: right antecubital; lg3 21:58 Follow up: Response: No adverse reaction; IV Status: Completed infusion; IV Intake: lg3 1000ml Intake: 21:58 IV: 1000ml; Total: 1000ml. lg3 Outcome: 21:10 Discharge ordered by MD. pm1 21:45 Patient left the ED. lp1 22:00 Discharged to home ambulatory, with family. lg3 22:00 Condition: stable 22:00 Discharge instructions given to patient. Signatures: Estrellita Caldwell RN RN ss Shyann Li RN RN lp1 Omar Yap, ZENA LUBE ATTENDANT pm1 Александр Montesinos RN RN bp Gibson, Lacie, RN RN lg3 Corrections: (The following items were deleted from the chart) 22:11 22:11 Patient left the ED. lp1 lp1
[2021-06-30 21:21] LABS: Barbiturates NEGATIVE (NEGATIVE); Benzodiazepines POSITIVE (NEGATIVE); Cocaine NEGATIVE (NEGATIVE); METHAMPHETAM POSITIVE (NEGATIVE); Methadone NEGATIVE (NEGATIVE); Opiates NEGATIVE (NEGATIVE); Phencyclidine NEGATIVE (NEGATIVE); THC Cannibis POSITIVE (NEGATIVE)
[2021-06-30 21:41] LABS: ALT/SGPT 66 U/L (12-78); AST/SGOT 58 U/L (15-37); Alkaline Phosphatase 104 U/L (45-117); Bilirubin Direct 0.2 mg/dL (0-0.2); Bilirubin Total 0.7 mg/dL (0.2-1.0); Protein, Total 7.9 g/dL (6.4-8.2)
[2021-07-01 04:04] VITALS: BP 127/85; TEMP 98.6; O2SAT 100
--- NOTE | 2021-07-01 08:03 | EKG ---
Test Date: 2021-06-30 Test Time: 19:40:35 [employer] Network Analyst: MEASUREMENT RESULTS: Intervals: Rate: 118 KS: 130 QRSD: 96 QT: 330 QTc: 462 [place]: P: 72 KS: 130 QRS: 100 T: 32 INTERPRETIVE STATEMENTS: Sinus tachycardia Rightward axis Borderline ECG Compared to ECG 12/10/2019 15:38:40 Right-axis deviation now present Sinus rhythm no longer present Prolonged QT interval no longer present Electronically Signed On 07-01-21 08:02:44 SHINGLE SHEARING MACHINE OPERATOR by Bib Ryder
== END 2021-06-30 22:11 | disposition home or self-care (01) ==
LOC: ER 18:47
DX: F15.159 Other stimulant abuse with stimulant-induced psychotic disorder, unspecified (principal); F12.10 Cannabis abuse, uncomplicated; F13.10 Sedative, hypnotic or anxiolytic abuse, uncomplicated; F20.9 Schizophrenia, unspecified
CPT/HCPCS: 36415; 80048; 80076; 80307; 80320; 80329; 85025; 85610; 85730; 93005; 96374; 99284; J7030

== ENCOUNTER → 2023-06-19 | Emergency (ER) | payer SELFPAY ==
[~2023-06-19] MED LIST: DICYCLOMINE HCL 10 MG CAP ONE; DIPHENOX/ATROP SULF 1 TAB PO ONE; IBUPROFEN 400 MG TAB ONE; PROMETHAZINE 25 MG TABLET ONE
--- OUTSIDE RECORDS SUMMARY | 2023-06-19 19:58 | XMS REPORT | Continuity of Care Document ---
Author Name Unknown Address [address] [facility] [address] [facility] Address 1200 [facility]. 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 Name Role Phone Pcp-None Primary Care Physician Unavailab Paul Nieto Attending Clinician Unavailable Payers Payer Name Policy Type Policy Number Effective Date Expirati on Date Source Allergies, Adverse Reactions, Alerts Allergy Name Allergy Type Status Severity Reaction(s) Onset Date Inactive Date Treating Clinician Comments Source [place] DA Active U Unknown 11-21 00:00: 00 [facility] c[place] DA Active U Unknown 08-29 00:00: 00 [facility] No Known Drug Allergie s DA Active U 08-29 00:00: 00 [facility] Encounters Start Date/Time End Date/Time Encounter Type Admission Type Attending [facility] Care Facility Care Department Encounter ID Source 2021-08-29 12:14:00 Inpatient [facility] [id number] [facility] 2021-11-21 15:12:00 2021-11-21 15:12:00 Emergency Emergency Paul Gandhi [facility] [id number] [facility] 2021-11-21 15:12:00 2021-11-21 15:12:00 Emergency Emergency Paul Gandhi [facility] [id number] [facility] 2021-08-29 12:14:00 2021-08-29 12:14:00 Emergency [facility] [id number] [facility] Results Test Description Test Time Test Comments Results Result Co mments Source Drug Screen,[id number] 17:40:00* Test Item Value Reference Range Interpretation Comme nts PCP Phencyclidine Screen,Urine (test code = PCPU) Negative Negative Amphetamine Screen,Urine (test code = AMPU) Positive Negative A Confirmation by GC/MS not routinely performed. Ifconfirmation is required, an order must be placed. Methadone Screen,Urine (test code = METHU) Negative Negative Opiate Screen,Urine (test code = UOPIS) Negative Negative Barbituates Screen,Urine (test code = BARBU) Negative Negative Benzodiazepines Screen,Urine (test code = UBENZS) Negative Negative Cocaine Screen,Urine (test code = UCOCS) Negative Negative Cannabinoid Screen,Urine (test code = UTHCS) Positive Negative A Propoxyphene Screen, Urine (test code = UPROP) TNP Negative UA, Urinalysis Rflx Cult/[id number] 17:40:00* Test Item Value Reference Range Interpretation Comme nts Color,Urine (test code = UCOL) Dark Yellow Yellow A Clarity,Urine (test code = UCLAR) Cloudy Clear A Ph, Urine (test code = UPH) 5.5 5.0-9.0 N Specific [place],Urine (test code = USG) >= 1.030 1.005-1.030 N Blood,Urine (test code = UBLD) Negative mg/dL Negative Protein,Urine (test code = UPRO) 30 mg/dL Negative A Glucose,Urine (UA) (test cod e = UGLU) Negative mg/dL Negative Ketones,Urine (test code = UKET) 15 mg/dL Negative A Nitrate,Urine (test code = UNIT) Negative Negative Bilirubin,Urine (test code = UBIL) Small mg/dL Negative A Urobilinogen,Urine (test cod e = UURO) 1.0 E.U./dL Normal Leukocyte Esterase,Urine (te st code = ULEU) Negative mg/dL Negative UF REFLEXUF REFLEXUF REFLEXUrine [id number] 17:40:00* Test Item Value Reference Range Interpretation Comme nts RBC,Urine (test code = URBCUF) 0-2 /HPF 0-2 WBC,Urine (test code = UWBCUF) None Seen /HPF 0-5 Epithelial Cell,Urine (test code = UECUF) None Seen /HPF 0-5 Casts,Urine (test code = UCASTUF) 0-5 /LPF None Seen Bacteria,Urine (test code = UBACTUF) None Seen /hpf None Seen UF REFLEXUF REFLEXUF REFLEXComplete Blood Count Auto [id number] 15:50:00* Test Item Value Reference Range Interpretation Comme nts White Blood Count (test code = WBCT) 9.8 x10 3/uL 4.4-10.5 N Red Blood Count (test code = RBC) 5.52 x10 6/uL 4.10-5.70 N Hemoglobin (test code = HGBT) 16.1 g/dL 13.4-17.4 N Hematocrit (test code = HCTT) 48.8 % 38.7-52.0 N Mean Corpuscular Volume (london t code = MCV) 88.40 fL 80.00-100.00 N Mean Corpuscular Hemoglobin (test code = MCH) 29.2 pg 27.0-32.5 N Mean Corpuscular HGB Conc (test code = MCHC) 33.00 g/dL 32.00-37.50 N RDW Coefficient of Variation (test code = RDWCV) 13.2 % 11.5-14.5 N Platelet Count (test code = PLTT) 332.0 x10 3/uL 140.0-440.0 N Mean Platelet Volume (test code = MPV) 9.4 fL Immature Granulocytes % (Aut o) (test code = IMMGRAN%) 0.4 % 0.0-5.0 N Neutrophils % (Auto) (test code = NE%) 78.6 % 36.0-70.0 H Lymphocytes % (Auto) (test code = LY%) 16.1 % 12.0-44.0 N Monocytes % (Auto) (test cod e = MO%) 4.4 % 0.0-11.0 N Eosinophils % (Auto) (test code = EO%) 0.4 % 0.0-7.0 N Basophils % (Auto) (test cod e = BA%) 0.1 % 0.0-2.0 N Immature Granulocytes # (Aut o) (test code = IMMGRAN#) 0.04 x10 3/uL Neutrophils # (Auto) (test code = NE#) 7.7 x10 3/uL 1.6-7.4 H Lymphocytes # (Auto) (test code = LY#) 1.58 x10 3/uL 0.50-4.60 N Monocytes # (Auto) (test cod e = MO#) 0.43 x10 3/uL 0.00-1.20 N Eosinophils # (Auto) (test code = EO#) 0.04 x10 3/uL 0.00-0.74 N Basophils # (Auto) (test cod e = BA#) 0.01 x10 3/uL 0.00-0.21 N nRBC Abs (test code = NRBCA) 0 nRBC Pct (test code = NRBCP) 0 % Troponin I High [id number] 15:50:00* Test Item Value Reference Range Interpretation Comme nts Troponin I High Sensitivity (test code = TROPHS) < 2.50 pg/mL 0-45 N < 2.5Interpretiv e Comments:* The 99th percentile URL for the assay is <45 pg/ml.* A rise and fall in Troponin I with at least onevalue above the 99th percentile with clinical evidence ofmyocardial ischemia would support a diagnosis of AMI. Adelta of at least 20% is recommended to assess acutechanges in results above the 99th percentile in serialmeasurements.* High concentrations of Biotin, a water soluble B-vitamin(B7) used in over the counter supplements and fortherapeutic purposes, has been tested and shows <10% changeup to 3,500 ng/mL Biotin using this Siemens AtellSeabags TNIHassay. Results obtained should be evaluated in conjunctionwith clinical findings. Comprehensive Metabolic [id number] 15:50:00* Test Item Value Reference Range Interpretation Comme nts SODIUM (test code = NA) 141.0 mmol/L 136.0-145.0 N Potassium,K (test code = K) 3.8 mmol/L 3.0-5.1 N Chloride (test code = CL) 102 mmol/L 98-107 N Carbon Dioxide (test code = CO2) 28 mmol/L 20-31 N Anion Gap (test code = GAP) 11 mmol/L 5-15 N Blood Urea Nitrogen (test co de = BUN) 11 mg/dL 9-23 N Creatinine (test code = CREATT) 0.87 mg/dL 0.55-1.02 N Creatinine Clr Calc Pharmacy (test code = CRCLPHA) 153.21 mL/min Estimated GFR ( Ameri ca (test code = EGFRAA) > 60 mL/min/1.73m2 Estimated GFR (Non Afr Ameri ca (test code = EGFRNAA) > 60 mL/min/1.73m2 BUN/Creatinine Ratio (test c ode = BCRATIO) 13 ratio 10-20 N Glucose (test code = GLU) 104 mg/dL 74-106 N Osmolality,Calculated (test code = OSMOC) 290.9 Calcium (test code = CA) 9.5 mg/dL 8.3-10.6 N Bilirubin,Total (test code = BILIT) 0.6 mg/dL 0.2-1.1 N Aspartate Amino Transferase (test code = AST) 48 U/L 0-34 H Alanine Aminotransferase (te st code = ALT) 37 U/L 10-49 N Total Protein (test code = TP) 7.3 g/dL 5.7-8.2 N Albumin Level (test code = ALB) 5.1 g/dL 3.2-4.8 H Globulin (test code = GLOB) 2.2 mg/dL 2.3-3.5 L Albumin/Globulin Ratio (test code = AGRATIO) 2.3 ratio 0.8-2.0 H Alkaline Phosphatase (test c ode = ALP) 122 U/L 46-116 H Ethanol [id number] 15:50:00* Test Item Value Reference Range Interpretation Comme nts Ethanol (test code = ETOH) < 3 mg/dL The pharmacologi keo response to blood alcohol levels mayvary from individual to individual. The fatal concentrationhas been reported to be >400mg/dL. Coronavirus PCR, COVID19 [id number] 15:45:00* Test Item Value Reference Range Interpretation Comme nts Coronavirus PCR, COVID19 Rapid (test code = SARSCOV2) For use under Emergency Use Authorization (EUA) only. Coronavirus PCR, COVID19 Rapid (test code = NMNEKJJ65.1) Reference Range: Negative SARS-CoV-2 PCR Result: (test code = SARS-CoV-2 PCR Result:) Negative by RT-PCR COVID-19 Status: SymptomaticComplete Blood Count Auto [id number] 12:51:00* Test Item Value Reference Range Interpretation Comme nts White Blood Count (test code = WBCT) 7.5 x10 3/uL 4.4-10.5 N Red Blood Count (test code = RBC) 4.98 x10 6/uL 4.10-5.70 N Hemoglobin (test code = HGBT) 14.3 g/dL 13.4-17.4 N Hematocrit (test code = HCTT) 43.5 % 38.7-52.0 N Mean Corpuscular Volume (london t code = MCV) 87.30 fL 80.00-100.00 N Mean Corpuscular Hemoglobin (test code = MCH) 28.7 pg 27.0-32.5 N Mean Corpuscular HGB Conc (test code = MCHC) 32.90 g/dL 32.00-37.50 N RDW Coefficient of Variation (test code = RDWCV) 14.0 % 11.5-14.5 N Platelet Count (test code = PLTT) 300.0 x10 3/uL 140.0-440.0 N Mean Platelet Volume (test code = MPV) 10.5 fL Immature Granulocytes % (Aut o) (test code = IMMGRAN%) 0.4 % 0.0-5.0 N Neutrophils % (Auto) (test code = NE%) 74.8 % 36.0-70.0 H Lymphocytes % (Auto) (test code = LY%) 17.9 % 12.0-44.0 N Monocytes % (Auto) (test cod e = MO%) 6.3 % 0.0-11.0 N Eosinophils % (Auto) (test code = EO%) 0.5 % 0.0-7.0 N Basophils % (Auto) (test cod e = BA%) 0.1 % 0.0-2.0 N Immature Granulocytes # (Aut o) (test code = IMMGRAN#) 0.03 x10 3/uL Neutrophils # (Auto) (test code = NE#) 5.6 x10 3/uL 1.6-7.4 N Lymphocytes # (Auto) (test code = LY#) 1.33 x10 3/uL 0.50-4.60 N Monocytes # (Auto) (test cod e = MO#) 0.47 x10 3/uL 0.00-1.20 N Eosinophils # (Auto) (test code = EO#) 0.04 x10 3/uL 0.00-0.74 N Basophils # (Auto) (test cod e = BA#) 0.01 x10 3/uL 0.00-0.21 N nRBC Abs (test code = NRBCA) 0 nRBC Pct (test code = NRBCP) 0 % UA, Urinalysis Rflx Cult/[id number] 12:51:00* Test Item Value Reference Range Interpretation Comme nts Color,Urine (test code = UCOL) Yellow Yellow Clarity,Urine (test code = UCLAR) Clear Clear Ph, Urine (test code = UPH) 6.5 5.0-9.0 N Specific [place],Urine (test code = USG) 1.010 1.005-1.030 N Blood,Urine (test code = UBLD) Negative mg/dL Negative Protein,Urine (test code = UPRO) Negative mg/dL Negative Glucose,Urine (UA) (test cod e = UGLU) Negative mg/dL Negative Ketones,Urine (test code = UKET) Negative mg/dL Negative Nitrate,Urine (test code = UNIT) Negative Negative Bilirubin,Urine (test code = UBIL) Negative mg/dL Negative Urobilinogen,Urine (test cod e = UURO) 0.2 E.U./dL Normal Leukocyte Esterase,Urine (te st code = ULEU) Negative mg/dL Negative Drug Screen,[id number] 12:51:00* Test Item Value Reference Range Interpretation Comme nts PCP Phencyclidine Screen,Uri ne (test code = PCPU) Negative Negative Amphetamine Screen,Urine (te st code = AMPU) Negative Negative Methadone Screen,Urine (test code = METHU) Negative Negative Opiate Screen,Urine (test co de = UOPIS) Negative Negative Barbituates Screen,Urine (te st code = BARBU) Negative Negative Benzodiazepines Screen,Urine (test code = UBENZS) Negative Negative Cocaine Screen,Urine (test c ode = UCOCS) Negative Negative Cannabinoid Screen,Urine (te st code = UTHCS) Negative Negative Propoxyphene Screen, Urine ( test code = UPROP) Negative Negative Comprehensive Metabolic [id number] 12:51:00* Test Item Value Reference Range Interpretation Comme nts SODIUM (test code = NA) 142.0 mmol/L 136.0-145.0 N Potassium,K (test code = K) 3.9 mmol/L 3.0-5.1 N Chloride (test code = CL) 109 mmol/L 98-107 H Carbon Dioxide (test code = CO2) 27 mmol/L 20-31 N Anion Gap (test code = GAP) 6 mmol/L 5-15 N Blood Urea Nitrogen (test co de = BUN) 8 mg/dL 9-23 L Creatinine (test code = CREATT) 0.78 mg/dL 0.55-1.02 N Creatinine Clr Calc Pharmacy (test code = CRCLPHA) 168.01 mL/min Estimated GFR ( Ameri ca (test code = EGFRAA) > 60 mL/min/1.73m2 Estimated GFR (Non Afr Ameri ca (test code = EGFRNAA) > 60 mL/min/1.73m2 BUN/Creatinine Ratio (test c ode = BCRATIO) 10 ratio 10-20 N Glucose (test code = GLU) 115 mg/dL 74-106 H Osmolality,Calculated (test code = OSMOC) 292.8 Calcium (test code = CA) 9.8 mg/dL 8.3-10.6 N Bilirubin,Total (test code = BILIT) 0.6 mg/dL 0.2-1.1 N Aspartate Amino Transferase (test code = AST) 36 U/L 0-34 H Alanine Aminotransferase (te st code = ALT) 24 U/L 10-49 N Total Protein (test code = TP) 6.9 g/dL 5.7-8.2 N Albumin Level (test code = ALB) 4.6 g/dL 3.2-4.8 N Globulin (test code = GLOB) 2.3 mg/dL 2.3-3.5 N Albumin/Globulin Ratio (test code = AGRATIO) 2.0 ratio 0.8-2.0 N Alkaline Phosphatase (test c ode = ALP) 115 U/L 46-116 N Ethanol [id number] 12:51:00* Test Item Value Reference Range Interpretation Comme nts Ethanol (test code = ETOH) 4 mg/dL The pharmacologi keo response to blood alcohol levels mayvary from individual to individual. The fatal concentrationhas been reported to be >400mg/dL. Sars-CoV-2/FLU A/B RSV [id number] 12:51:00* Test Item Value Reference Range Interpretation Comme nts Sars-CoV-2/FLU A/B RSV PCR (test code = SARSFLURSVPCR) Sars-CoV-2/FLU A/B RSV PCR (test code = SARSFLURSVPCR1.1) Reference Range: Negative Influenza A PCR: (test code = Influenza A PCR:) Negative by Nucleic Acid Amplification Influenza B PCR: (test code = Influenza B PCR:) Negative by Nucleic Acid Amplification RSV PCR Result: (test code = RSV PCR Result:) Negative by Nucleic Acid Amplification SARS-CoV-2 PCR Result: (test code = SARS-CoV-2 PCR Result:) Negative by RT-PCR XR chest [facility] [address] [place] [address] Patient Name: Ryan Francisco Medical Record#: [id number] Address: [address] [place] [address] /State/Zip: [place] [address]: Paul Gandhi MD Insurance: Self Pay /Age/Sex: 1985/36/M Admit/Reg Date: 11/21/[address]: Paul Gandhi MD Location: [facility]/ PCP: Pcp-Md NATALIE Quiroga Date of Service: 11/21/21 Order (s): XR chest 1V CPT Code: 10168 Report Number: [id number] Reason for Exam: Chest pain CHEST 1 VIEW CLINICAL INFORMATION: Chestpain COMPARISON: None FINDINGS: The lungs are well-expanded and clear. No airspace consolidation is seen. No pneumothorax or pleural effusion is present. The cardiac silhouette is normal in size. The bones are grossly intact. IMPRESSION: No acute cardiopulmonary finding. LOCATION: 6 Electronically signed by: Jaun Damon MD 11/21/2021 4:40 PM CDT Dictated By: Jaun Damon MD 11/21/211631 Signed By: Jaun Damon MD 11/21/21 164 TD/TT: 11/21/211631 Tech: [id number] cc: SHARMAINE; MONSTER* Paul Gandhi MD; Pcp-Md NATALIE Quiroga
[2023-06-19 21:04] LABS: Absolute Lymphocytes (CBC) 2.7 K/uL (0.7-4.9); Hematocrit 44.7 % (39.6-49.0); Lymphocytes % 29.7 % (15.3-44.8); MCV 85.8 fL (80-100); MPV 7.8 fL (7.6-11.3); Platelets 288 thou/uL (152-406); RBC Red Blood Cell Count 5.21 M/uL (4.33-5.43)
[2023-06-19 21:25] LABS: Barbiturates NEGATIVE (NEGATIVE); Benzodiazepines NEGATIVE (NEGATIVE); Cocaine NEGATIVE (NEGATIVE); METHAMPHETAM NEGATIVE (NEGATIVE); Methadone NEGATIVE (NEGATIVE); Opiates NEGATIVE (NEGATIVE); Phencyclidine NEGATIVE (NEGATIVE); THC Cannibis POSITIVE (NEGATIVE)
[2023-06-19 21:37] LABS: ALT/SGPT 35 U/L (16-61); Albumin 3.5 g/dL (3.4-5.0); Alkaline Phosphatase 88 U/L (45-117); BUN Blood Urea Nitrogen 15 mg/dL (7-18); Bicarbonate 26 mEq/L (21-32); Bilirubin Total 0.3 mg/dL (0.2-1.0); Glomerular Filtration Rate 103 ml/min (=/>90); Glucose Level 107 mg/dL (74-106); NT PRO-BNP 33 pg/mL (<125); Protein, Total 7.2 g/dL (6.4-8.2); Sodium Level 137 mEq/L (136-145); Troponin High Sensitivity 3.4 pg/mL (<58.9)
[2023-06-19 21:41] LABS: Potassium 4.5 mEq/L (3.5-5.1)
[2023-06-19 21:42] LABS: AST/SGOT 21 U/L (15-37); Bilirubin Direct < 0.1 mg/dL (0-0.2); Bilirubin Indirect, Calculated ND mg/dL (0.2-0.8)
--- NOTE | 2023-06-19 23:50 | ER ---
Nurse's Notes [facility] Name: Santos Francisco Age: 37 yrs Sex: Male : 1985 Arrival Date: 06/19/2023 Time: 19:55 Bed 17 Private MD: Diagnosis: Diarrhea, unspecified;Gastroenteritis, nausea and diarrhea Presentation: 06/19 20:26 Chief complaint: Patient states: diarrhea, nausea, ABD, and dizziness starting today km8 after using meth with orange juice 1 week ago;. Coronavirus screen: Client denies travel out of the [place] in the last 14 days. Ebola Screen: No symptoms or risks identified at this time. Initial Sepsis Screen: Does the patient meet any 2 criteria? No. Patient's initial sepsis screen is negative. Does the patient have a suspected source of infection? No. Patient's initial sepsis screen is negative. Risk Assessment: Do you want to hurt yourself or someone else? Patient reports no desire to harm self or others. Onset of symptoms is unknown. 20:26 Method Of Arrival: Ambulatory [facility] 20:26 Acuity: OUSMANE 3 8 Triage Assessment: 20:28 Headache History: The patient has had previous headaches and this one is similar to 8 previous episodes. General: Appears in no apparent distress. comfortable, Behavior is cooperative, appropriate for age, anxious, restless. Pain: Complains of pain in abdomen Pain currently is 5 out of 10 on a pain scale. Pain began gradually, Also complains of nausea. EENT: No signs and/or symptoms were reported regarding the EENT system. Neuro: Level of Consciousness is awake, alert, obeys commands, Oriented to person, place, time, situation. Cardiovascular: Denies chest pain, shortness of breath, Capillary refill < 3 seconds Patient's skin is warm and dry. Respiratory: Airway is patent Respiratory effort is even, unlabored, Respiratory pattern is regular, symmetrical. GI: Reports lower abdominal pain, upper abdominal pain, diarrhea. : No signs and/or symptoms were reported regarding the genitourinary system. Derm: Skin is intact, is healthy with good turgor, Skin is dry, Skin is pink, warm \T\ dry. normal, Skin temperature is warm. Musculoskeletal: No signs and/or symptoms reported regarding the musculoskeletal system. Circulation, motion, and sensation intact. Range of motion: intact in all extremities. Historical: - Allergies: 20:28 No Known Allergies; km8 - Home Meds: 20:28 None [Active]; km8 - PMHx: 20:28 Bipolar disorder; Schizophrenia; Seizure; 8 - PSHx: 20:28 None; km8 - Immunization history:: Client reports receiving the 2nd dose of the Covid vaccine, Flu vaccine is not up to date. - Social history:: Smoking status: Patient/guardian denies using tobacco, Stopped _ months ago [address], Methamphetamine (Meth) Patient/guardian denies using alcohol. - Family history:: not pertinent. Screenin:[address] [facility] ED Fall Risk Assessment (Adult) History of falling in the last 3 months, me1 including since admission No falls in past 3 months (0 pts) Confusion or Disorientation No (0 pts) Intoxicated or Sedated No (0 pts) Impaired Gait No (0 pts) Mobility Assist Device Used No (0 pt) Altered Elimination No (0 pt) Score/Fall Risk Level 0 - 2 = Low Risk Maintained a safe environment, Provided non-skid footwear, Hourly rounding (assess needs \T\ fall precautionary measures) done. Abuse screen: Denies threats or abuse. Nutritional screening: No deficits noted. Tuberculosis screening: No symptoms or risk factors identified. Assessment: 21:46 General: Appears uncomfortable, ill, well groomed, well developed, well nourished, me1 Behavior is calm, cooperative, appropriate for age, Reports diarrhea, nausea, ABD, and dizziness starting today after using meth with orange juice 1 week ago;. Pain: Denies pain. Neuro: Level of Consciousness is awake, alert, obeys commands, Oriented to person, place, time, situation, Appropriate for age. Neuro: Reports dizziness, since today. Cardiovascular: Capillary refill < 3 seconds Patient's skin is warm and dry. Respiratory: Airway is patent Respiratory effort is even, unlabored, Respiratory pattern is regular, symmetrical. GI: Abdomen is round non-distended, Reports nausea. Vital Signs: 20:26 BP 141 / 83; Pulse 81; Resp 16; Temp 97.3(IR); Pulse Ox 99% on R/A; Weight 108.86 kg km8 (R); Height 5 ft. 11 in. (R); Pain 5/10; 20:35 BP 129 / 72; Pulse 71; Resp 16; Pulse Ox 98% on R/A; me1 21:00 BP 117 / 61; Pulse 77; Resp 16; Pulse Ox 98% on R/A; me1 22:00 BP 119 / 61; Pulse 69; Resp 16; Pulse Ox 97% ; me1 23:00 BP 124 / 60; Pulse 64; Resp 18; Pulse Ox 98% on R/A; me1 23:30 BP 125 / 65; Pulse 69; Resp 18; Pulse Ox 97% on R/A; me1 20:26 Body Mass Index 33.47 (108.86 kg, 180.34 cm) km8 20:26 Pain Scale: Adult km8 [place] Coma Score: 06/20 00:02 Eye Response: spontaneous(4). Motor Response: obeys commands(6). Verbal Response: sp4 oriented(5). Total: 15. ED Course: 06/19 20:01 Patient arrived in ED. gm2 20:22 Ar Hagen MD is Attending Physician. sp4 20:28 Triage completed. km8 20:28 Arm band placed on right wrist. km8 20:37 Janny Morales, MILIND is Primary Nurse. me1 20:55 Inserted saline lock: 20 gauge in right antecubital area, using aseptic technique. me1 20:56 Basic Metabolic Panel Sent. me1 20:56 CBC with Diff Sent. me1 20:56 LFT's Sent. me1 20:56 NT PRO-BNP Sent. me1 20:56 Troponin HS Sent. me1 20:56 Urine Drug Screen Sent. me1 20:56 Influenza Screen (a \T\ B) Sent. me1 20:56 COVID-19 SARS RT PCR Sent. me1 21:46 Patient has correct armband on for positive identification. Bed in low position. Call me1 light in reach. Side rails up X2. Provided Education on: POC. Verbalized understanding. . 21:46 No provider procedures requiring assistance completed. me1 23:48 Santos Cueto MD is Referral Physician. sp4 23:55 IV discontinued, intact, bleeding controlled, No redness/swelling at site. Pressure me1 dressing applied. Administered Medications: 21:04 Drug: Diphenoxylate-Atropine PO 2 tabs PO once Route: PO; me1 21:56 Follow up: Response: No adverse reaction; Pain is decreased me1 21:04 Drug: Promethazine PO 25 mg PO once Route: PO; me1 21:56 Follow up: Response: No adverse reaction; Nausea is decreased me1 21:04 Drug: Ibuprofen PO 800 mg PO once Route: PO; me1 21:56 Follow up: Response: No adverse reaction; Pain is decreased me1 21:04 Drug: Dicyclomine PO 20 mg PO once Route: PO; me1 21:57 Follow up: Response: No adverse reaction; Pain is decreased me1 Medication: 21:46 VIS not applicable for this client. oh1 Outcome: 23:49 Discharge ordered by . sp4 23:54 Discharged to home ambulatory, oh1 23:54 Condition: stable 23:54 Discharge instructions given to patient, Instructed on discharge instructions, follow up and referral plans. medication usage, Demonstrated understanding of instructions, follow-up care, medications, Prescriptions given X 2, 23:55 Patient left the ED. oh1 Signatures: Ar Hagen MD MD sp4 Janny Morales, RN RN oh1 Bailey [place] 2 Suly Rebollar RN RN km8 Corrections: (The following items were deleted from the chart) 20:30 20:26 Chief complaint: Patient states: diarrhea, nausea and dizziness starting today km8 after using meth with orange juice 1 week ago; km8 21:46 20:26 Chief complaint: Patient states: diarrhea, nausea, ABD, and dizziness starting me1 today after using meth with orange juice 1 week ago; km8
--- NOTE | 2023-06-19 23:50 | EDPHYS ---
Physician Documentation [facility] Name: Santos Francisco Age: 37 yrs Sex: Male : 1985 Arrival Date: 06/19/2023 Time: 19:55 Bed 17 Private MD: ED Physician Ar Hagen HPI: 06/19 20:22 This 37 yrs old Male presents to ER via Unassigned with complaints of sp4 Headache, Congestion, Cough, Pt stated he took meth a wekk ago and doesnt feel well. 06/20 00:00 37-year-old male presents with complaint of dizziness, nausea, and diarrhea. Patient sp4 states that 1 week ago he consumed crystal meth with some orange juice and now he is feeling unwell. Patient states that he has dizziness as well. Reported watery nonbloody diarrhea.. Historical: - Allergies: 06/19 20:28 No Known Allergies; km8 - Home Meds: 20:28 None [Active]; km8 - PMHx: 20:28 Bipolar disorder; Schizophrenia; Seizure; km8 - PSHx: 20:28 None; km8 - Immunization history:: Client reports receiving the 2nd dose of the Covid vaccine, Flu vaccine is not up to date. - Social history:: Smoking status: Patient/guardian denies using tobacco, Stopped _ months ago [address], Methamphetamine (Meth) Patient/guardian denies using alcohol. - Family history:: not pertinent. ROS: 06/20 00:00 Constitutional: Negative for fever, chills, and weight loss, positive dizziness, sp4 positive diarrhea, positive nausea All other systems are negative, Exam: 00:00 Constitutional: This is a well developed, well nourished patient who is awake, alert, sp4 and in no acute distress. Head/Face: Normocephalic, atraumatic. Eyes: Pupils equal round and reactive to light, extra-ocular motions intact. Lids and lashes normal. Conjunctiva and sclera are not injected. Cornea within normal limits. Periorbital areas with no swelling, redness, or edema. ENT: Nares patent. No nasal discharge, no septal abnormalities noted. Tympanic membranes are normal and external auditory canals are clear. Oropharynx with no redness, swelling, or masses, exudates, or evidence of obstruction, uvula midline. Mucous membranes moist. Neck: Trachea midline, no thyromegaly or masses palpated, and no cervical lymphadenopathy. Supple, full range of motion without nuchal rigidity, or vertebral point tenderness. Chest/axilla: Normal chest wall appearance and motion. Nontender with no deformity. No lesions are appreciated. Cardiovascular: Regular rate and rhythm with a normal S1 and S2. No gallops, murmurs, or rubs. Normal PMI, no JVD. No pulse deficits. Respiratory: Lungs have equal breath sounds bilaterally, clear to auscultation and percussion. No rales, rhonchi or wheezes noted. No increased work of breathing, no retractions or nasal flaring. Abdomen/GI: Soft, non-tender, with normal bowel sounds. No distension or tympany. No guarding or rebound. No evidence of tenderness throughout. Back: No spinal tenderness. No costovertebral tenderness. There is sacral decubitus ulcer that is covered by the wound VAC. Skin: Warm, dry with normal turgor. Normal color with no rashes, no lesions, and no evidence of cellulitis. MS/ Extremity: Pulses equal, no cyanosis. Neurovascular intact. Full, normal range of motion. Neuro: Awake and alert, GCS 15, oriented to person, place, time, and situation. Cranial nerves II-XII grossly intact. Motor strength 5/5 in all extremities. Sensory grossly intact. Psych: Awake, alert, with orientation to person, place and time. Behavior, mood, and affect are within normal limits 00:00 ECG was reviewed by the Attending Physician. EKG time 2142, normal sinus rhythm normal sp4 EKG, EKG at the rate of 72. Vital Signs: 06/19 20:26 BP 141 / 83; Pulse 81; Resp 16; Temp 97.3(IR); Pulse Ox 99% on R/A; Weight 108.86 kg km8 (R); Height 5 ft. 11 in. (R); Pain 5/10; 20:35 BP 129 / 72; Pulse 71; Resp 16; Pulse Ox 98% on R/A; me1 21:00 BP 117 / 61; Pulse 77; Resp 16; Pulse Ox 98% on R/A; me1 22:00 BP 119 / 61; Pulse 69; Resp 16; Pulse Ox 97% ; me1 23:00 BP 124 / 60; Pulse 64; Resp 18; Pulse Ox 98% on R/A; me1 23:30 BP 125 / 65; Pulse 69; Resp 18; Pulse Ox 97% on R/A; me1 20:26 Body Mass Index 33.47 (108.86 kg, 180.34 cm) [facility] 20:26 Pain Scale: Adult [facility] Alessandro Coma Score: 06/20 00:02 Eye Response: spontaneous(4). Motor Response: obeys commands(6). Verbal Response: sp4 oriented(5). Total: 15. MDM: 06/19 20:23 Patient medically screened. [facility] 06/20 00:02 Differential diagnosis: hypertensive headache, hypoglycemia, hyponatremia, migraine, sp4 vasomotor headache. Data reviewed: vital signs, nurses notes, old medical records, lab test result(s), Flu: negative EKG. ED course: Patient has no sign of acute medical emergency. Patient has normal EKG. Patient is negative for methamphetamine. Positive for THC which may explain dizziness. I had medical provide as needed Lomotil for diarrhea and as needed Zofran for nausea. Stable for discharge home. Patient was advised to abstain from crystal meth use.. 06/19 20:23 Order name: COVID-19 SARS RT PCR; Complete Time: 23:43 [facility] 06/19 20:23 Order name: Influenza Screen (a \T\ B); Complete Time: 23:43 [facility] 06/19 20:23 Order name: Urine Drug Screen; Complete Time: 23:43 [facility] 06/19 20:31 Order name: Basic Metabolic Panel; Complete Time: 23:43 [facility] 06/19 20:31 Order name: CBC with Diff; Complete Time: 23:43 [facility] 06/19 20:31 Order name: LFT's; Complete Time: 23:43 [facility] 06/19 20:31 Order name: NT PRO-BNP; Complete Time: 23:43 [facility] 06/19 20:31 Order name: Troponin HS; Complete Time: 23:43 [facility] 06/19 20:31 Order name: EKG; Complete Time: 20:31 [facility] 06/19 20:31 Order name: EKG - Nurse/Tech; Complete Time: 21:46 [facility] 06/19 20:31 Order name: IV Saline Lock; Complete Time: 20:55 4 06/19 20:31 Order name: Labs collected and sent; Complete Time: 20:56 sp4 EC:00 Rate is 72 beats/min. Rhythm is regular, Normal Sinus Rhythm. QRS [place] is Normal. IN sp4 interval is normal. QRS interval is normal. QT interval is normal. No Q waves. T waves are Normal. No ST changes noted. Clinical impression: Normal ECG. Interpreted by me. Reviewed by me. Administered Medications: 06/19 21:04 Drug: Diphenoxylate-Atropine PO 2 tabs PO once Route: PO; me1 21:56 Follow up: Response: No adverse reaction; Pain is decreased me1 21:04 Drug: Promethazine PO 25 mg PO once Route: PO; me1 21:56 Follow up: Response: No adverse reaction; Nausea is decreased me1 21:04 Drug: Ibuprofen PO 800 mg PO once Route: PO; me1 21:56 Follow up: Response: No adverse reaction; Pain is decreased me1 21:04 Drug: Dicyclomine PO 20 mg PO once Route: PO; me1 21:57 Follow up: Response: No adverse reaction; Pain is decreased me1 Disposition Summary: 06/19/23 23:49 Discharge Ordered Problem: new sp4 Symptoms: have improved sp4 Condition: Stable sp4 Diagnosis - Diarrhea, unspecified sp4 - Gastroenteritis, nausea and diarrhea sp4 Followup: sp4 - With: Santos Cueto MD - When: 7 - 10 days - Reason: Recheck today's complaints Discharge Instructions: - Discharge Summary Sheet sp4 - Diarrhea, Adult sp4 Forms: - Patient Portal Instructions sp4 Prescriptions: - Lomotil 2.5-0.025 mg Oral tablet - take 1 tablet ORAL route every 6 hours As needed; 30 tablet; Refills: 0, sp4 Product Selection Permitted - ondansetron 8 mg Oral Tablet,disintegrating - take 1 tablet ORAL route every 8 hours PRN nausea; 30 tablet; Refills: 0, sp4 Product Selection Permitted Signatures: Dispatcher [employer] Ar Rodriguez MD MD sp4 Janny Morales, RN RN me1 Suly Rebollar RN RN km8
[2023-06-20 03:12] VITALS: TEMP 97.3
[2023-06-20 03:35] VITALS: BP 125/65; O2SAT 97
--- NOTE | 2023-06-22 17:06 | EKG ---
Test Date: 2023-06-19 Test Time: 21:41:32 Fixture Repairer Fabricator: LISSETTE MEASUREMENT RESULTS: Intervals: Rate: 69 [place]: 128 QRSD: 110 QT: 394 QTc: 422 [place]: P: 22 [place]: 128 QRS: 73 T: 37 INTERPRETIVE STATEMENTS: Normal sinus rhythm Normal ECG Compared to ECG 06/30/2021 19:41:16 Sinus tachycardia no longer present Electronically Signed On 06-22-23 16:59:27 AIRPORT SKILLED MAINTENANCE SUPERVISOR by Dylan Lin
== END ==
LOC: ER 19:55
DX: K52.9 Noninfective gastroenteritis and colitis, unspecified (principal); R11.0 Nausea; Z11.52 Encounter for screening for COVID-19
CPT/HCPCS: 36415; 80048; 80076; 80307; 83880; 84484; 85025; 87635; 87804; 93005; 99284; Q0169

== ENCOUNTER → 2023-07-11 | Emergency (ER) | payer SELFPAY ==
[~2023-07-11] MED LIST changes: -DICYCLOMINE HCL 10 MG CAP ONE; -DIPHENOX/ATROP SULF 1 TAB PO ONE; +FAMOTIDINE 20 MG/2 ML VIAL IV ONE; -IBUPROFEN 400 MG TAB ONE; +KETOROLAC 30 MG/ML INJ ONE; -PROMETHAZINE 25 MG TABLET ONE
--- OUTSIDE RECORDS SUMMARY | 2023-07-12 00:03 | XMS REPORT | Continuity of Care Document ---
Author Name Unknown Address [address] [place] [address] [facility] Address [address] [facility] [place] [address] Care Team Providers Care Cabinet Builder Name Role Phone Pcp-None Primary Care Physician Unavailab Paul Nieto Attending Clinician Unavailable Payers Payer Name Policy Type Policy Number Effective Date Expirati on Date Source Allergies, Adverse Reactions, Alerts Allergy Name Allergy Type Status Severity Reaction(s) Onset Date Inactive Date Treating Clinician Comments Source [place] DA Active U Unknown 11-21 00:00: 00 [facility] c[place] DA Active U Unknown 08-29 00:00: 00 [facility] No Known Drug Allergie s DA Active U 08-29 00:00: 00 [facility] Encounters Start Date/Time End Date/Time Encounter Type Admission Type Attending [facility] Care Facility Care Department Encounter ID Source 2021-08-29 12:14:00 Inpatient [facility] [id number] [facility] 2021-11-21 15:12:00 2021-11-21 15:12:00 Emergency Emergency Paul Gandhi [facility] [id number] [facility] 2021-11-21 15:12:00 2021-11-21 15:12:00 Emergency Emergency Paul Gandhi [facility] [id number] [facility] 2021-08-29 12:14:00 2021-08-29 12:14:00 Emergency [facility] [id number] [facility] Results Test Description Test Time Test Comments Results Result Co mments Source Drug Screen,[id number] 17:40:00* Test Item Value Reference Range Interpretation [...] = UPROP) TNP Negative UA, Urinalysis Rflx Cult/[id number] 17:40:00* Test Item Value Reference Range Interpretation Comme nts Color,Urine (test code = UCOL) Dark Yellow Yellow A Clarity,Urine (test code = UCLAR) Cloudy Clear A Ph, Urine (test code = UPH) 5.5 5.0-9.0 N Specific [place],Urine (test code = USG) >= 1.030 1.005-1.030 [...] Negative mg/dL Negative UF REFLEXUF REFLEXUF REFLEXUrine [id number] 17:40:00* Test Item Value Reference Range Interpretation Comme nts RBC,Urine (test code = URBCUF) 0-2 /HPF 0-2 WBC,Urine (test code = UWBCUF) None Seen /HPF 0-5 Epithelial Cell,Urine (test code = UECUF) None Seen /HPF 0-5 Casts,Urine (test code = UCASTUF) 0-5 /LPF None Seen Bacteria,Urine (test code = UBACTUF) None Seen /hpf None Seen UF REFLEXUF REFLEXUF REFLEXComplete Blood Count Auto [id number] 15:50:00* Test Item Value Reference Range Interpretation [...] = NRBCP) 0 % Troponin I High [id number] 15:50:00* Test Item Value Reference Range Interpretation [...] to 3,500 ng/mL Biotin using this [employer] TNIHassay. Results obtained should be evaluated in conjunctionwith clinical findings. Comprehensive Metabolic [id number] 15:50:00* Test Item Value Reference Range Interpretation [...] = ALP) 122 U/L 46-116 H Ethanol [id number] 15:50:00* Test Item Value Reference Range Interpretation Comme nts Ethanol (test code = ETOH) < 3 mg/dL The pharmacologi keo response to blood alcohol levels mayvary from individual to individual. The fatal concentrationhas been reported to be >400mg/dL. Coronavirus PCR, COVID19 [id number] 15:45:00* Test Item Value Reference Range Interpretation Comme nts Coronavirus PCR, COVID19 Rapid (test code = SARSCOV2) For use under Emergency Use Authorization (EUA) only. Coronavirus PCR, COVID19 Rapid (test code = OVLSBWS39.1) Reference Range: Negative SARS-CoV-2 PCR Result: (test code = SARS-CoV-2 PCR Result:) Negative by RT-PCR COVID-19 Status: SymptomaticComplete Blood Count Auto [id number] 12:51:00* Test Item Value Reference Range Interpretation [...] = NRBCP) 0 % UA, Urinalysis Rflx [id number] 12:51:00* Test Item Value Reference Range Interpretation Comme nts Color,Urine (test code = UCOL) Yellow Yellow Clarity,Urine (test code = UCLAR) Clear Clear Ph, Urine (test code = UPH) 6.5 5.0-9.0 N Specific [place],Urine (test code = USG) 1.010 1.005-1.030 N [...] code = ULEU) Negative mg/dL Negative Drug Screen,[id number] 12:51:00* Test Item Value Reference Range Interpretation [...] code = UPROP) Negative Negative Comprehensive Metabolic [id number] 12:51:00* Test Item Value Reference Range Interpretation [...] = ALP) 115 U/L 46-116 N Ethanol [id number] 12:51:00* Test Item Value Reference Range Interpretation Comme nts Ethanol (test code = ETOH) 4 mg/dL The pharmacologi keo response to blood alcohol levels mayvary from individual to individual. The fatal concentrationhas been reported to be >400mg/dL. Sars-CoV-2/FLU A/B RSV [id number] 12:51:00* Test Item Value Reference Range Interpretation [...] Result:) Negative by [facility] [address] [place] [address] Patient Name: Ryan Francisco Medical Record#: [id number] Address: [address] [place] [address] /State/Zip: [place] [address]: Paul Gandhi MD Insurance: Self Pay /Age/Sex: 1985/36/M Admit/Reg Date: 11/21/[address]: Paul Gandhi MD [facility]/ PCP: Pcp-Md NATALIE Quiroga Date of Service: 11/21/21 Order (s): XR chest 1V CPT Code: 54651 Report Number: [id number] Reason for Exam: Chest pain CHEST 1 VIEW CLINICAL INFORMATION: Chest pain COMPARISON: None FINDINGS: The lungs are well-expanded and clear. No airspace consolidation is seen. No pneumothorax or pleural effusion is present. The cardiac silhouette is normal in size. Thebones are grossly intact. IMPRESSION: No acute cardiopulmonary finding. LOCATION: 6 Electronically signed by: Jaun Damon MD 11/21/2021 4:40 PM CDT Dictated By: Jaun Damon MD 11/21/211631 Signed By: Jaun Damon MD 11/21/211641 TD/TT: 11/21/21 1632 Tech: [id number] cc: SHARMAINE; MONSTER* Paul Gandhi MD; Pcp-Md NATALIE Quiroga
[2023-07-12 01:45] LABS: Absolute Lymphocytes (CBC) 1.9 K/uL (0.7-4.9); Hematocrit 40.7 % (39.6-49.0); Lymphocytes % 33.9 % (15.3-44.8); MCV 85.2 fL (80-100); MPV 7.3 fL (7.6-11.3); Platelets 262 thou/uL (152-406); RBC Red Blood Cell Count 4.78 M/uL (4.33-5.43)
[2023-07-12 01:54] LABS: Potassium 3.5 mEq/L (3.5-5.1); Troponin High Sensitivity 3.7 pg/mL (<58.9)
--- NOTE | 2023-07-12 02:13 | EDPHYS ---
Physician Documentation [facility] Name: Santos Francisco Age: 37 yrs Sex: Male : 1985 Arrival Date: 07/11/2023 Time: 23:59 Bed 5 Private MD: ED Physician Levon Galvan HPI: 07/12 00:31 This 37 yrs old Male presents to ER via Unassigned with complaints of rn Headache, chest pain, Breathing Difficulty. 00:31 The patient or guardian reports chest pain that is located primarily in the anterior rn chest wall, chest diffusely. The pain radiates to back. Associated signs and symptoms: Pertinent positives: cough, shortness of breath, Pertinent negatives: diaphoresis, palpitations. The chest pain is described as sharp, stabbing. Duration: The patient or guardian reports multiple episodes, that are intermittent. Modifying factors: The symptoms are alleviated by nothing. the symptoms are aggravated by deep breath. Severity of pain: At its worst the pain was moderate in the emergency department the pain is unchanged. The patient has not experienced similar symptoms in the past. The patient has not recently seen a physician. Patient reports approximately 2-1/2 weeks of sharp stabbing chest pain, bilateral and diffuse. Radiates straight to back. Worse with deep breath. Patient reports cough as well as recent infection with diarrhea. No hemoptysis. No history of DVT or PE. No trauma. Patient states Tylenol not helping. Is a smoker.. Historical: - Allergies: 00:35 No Known Allergies; tm6 - PMHx: 00:35 Bipolar disorder; Schizophrenia; Seizure; tm6 - PSHx: 00:35 None; tm6 - Immunization history:: Adult Immunizations up to date, Client reports having NOT received the Covid vaccine. Flu vaccine is not up to date. - Social history:: Smoking status: Patient reports the use of cigarette tobacco products, smokes one-half pack cigarettes per day, Patient/guardian denies using alcohol, street drugs. - Family history:: not pertinent. - Hospitalizations: : No recent hospitalization is reported. ROS: 00:31 Constitutional: Negative for fever, chills, and weight loss, Eyes: Negative for injury, rn pain, redness, and discharge, Cardiovascular: Positive for chest pain Respiratory: Positive for shortness of breath and cough Abdomen/GI: Negative for abdominal pain, nausea, vomiting, diarrhea, and constipation, MS/Extremity: Negative for injury and deformity, Skin: Negative for injury, rash, and discoloration, Neuro: Negative for headache, weakness, numbness, tingling, and seizure, Exam: 00:31 Constitutional: This is a well developed, well nourished patient who is awake, alert, rn and in no acute distress. Cardiovascular: Regular rate and rhythm. No pulse deficits. Respiratory: Speaking full sentences, unlabored. No increased work of breathing, no retractions or nasal flaring. Abdomen/GI: Soft, non-tender, no distention. Negative [place] MS/ Extremity: Pulses equal, no cyanosis. Neurovascular intact. Full, normal range of motion. Equal circumference. Neuro: Awake and alert, GCS 15 02:28 ECG was reviewed by the Attending Physician. rn Vital Signs: 00:32 BP 137 / 80; Pulse 87; Resp 17; Temp 99.7(TE); Pulse Ox 99% on R/A; Weight 119.5 kg; tm6 Height 5 ft. 11 in. ; Pain 8/10; 01:00 BP 143 / 80; Pulse 86; Resp 16; Pulse Ox 100% on R/A; km8 02:23 BP 162 / 85; Pulse 88; Resp 19; Pulse Ox 97% ; tm6 00:32 Body Mass Index 36.74 (119.50 kg, 180.34 cm) tm6 00:32 Pain Scale: Adult tm6 Alessandro Coma Score: 00:39 Eye Response: spontaneous(4). Motor Response: obeys commands(6). Verbal Response: tm6 oriented(5). Total: 15. MDM: 00:07 Patient medically screened. rn 02:11 Differential diagnosis: acute pericarditis, anxiety, chest wall pain, costochondritis, rn esophagitis, gastritis, gastroesophageal reflux disease (GERD), pleurisy, pneumonia, pneumothorax, pulmonary embolus. Data reviewed: vital signs, nurses notes, lab test result(s), EKG, radiologic studies, plain films, and as a result, I will discharge patient. Counseling: I had a detailed discussion with the patient and/or guardian regarding the historical points, exam findings, and any diagnostic results supporting the discharge/admit diagnosis, lab results, radiology results, the need for outpatient follow up, to return to the emergency department if symptoms worsen or persist or if there are any questions or concerns that arise at home. Response to treatment: the patient's symptoms have mildly improved after treatment, and as a result, I will discharge patient. Special discussion: I discussed with the patient/guardian in detail that at this point there is no indication for admission to the hospital. It is understood, however, that if the symptoms persist or worsen the patient needs to return immediately for re-evaluation. Based on the history and exam findings, there is no indication for further emergent testing or inpatient evaluation. I discussed with the patient/guardian the need to see the primary care provider for further evaluation of the symptoms. 07/12 00:26 Order name: Basic Metabolic Panel; Complete Time: 02: rn 07/12 00:26 Order name: CBC with Diff; Complete Time: 02: rn 07/12 00:26 Order name: D-Dimer; Complete Time: 01:48 rn 07/12 00:26 Order name: Troponin HS; Complete Time: 02: rn 07/12 00:26 Order name: XRAY Chest (1 view) rn 07/12 00:26 Order name: EKG; Complete Time: 00:27 rn 07/12 00:26 Order name: Cardiac monitoring; Complete Time: :42 rn 07/12 00:26 Order name: EKG - Nurse/Tech; Complete Time: 00:50 rn 07/12 00:26 Order name: IV Saline Lock; Complete Time: :24 rn 07/12 00:26 Order name: Labs collected and sent; Complete Time: :24 rn 07/12 00:26 Order name: O2 Per Protocol; Complete Time: :42 rn 07/12 00:26 Order name: O2 Sat Monitoring; Complete Time: :42 rn EC:28 Rate is 88 beats/min. Rhythm is regular. QRS [place] is Normal. [place] interval is normal. QRS rn interval is normal. QT interval is normal. No Q waves. T waves are Normal. No ST changes noted. Clinical impression: NSR w/ Non-specific ST/T Changes. Interpreted by me. Reviewed by me. Administered Medications: :33 Drug: Ketorolac IVP 15 mg IVP once Route: IVP; Site: left antecubital; tm6 01:33 Drug: Famotidine IVP 20 mg IVP once; dilute with 10 mL 0.9% NaCl; give over 2 minutes tm6 Route: IVP; Site: left antecubital; Disposition Summary: 07/12/23 02:12 Discharge Ordered Notes: Location: Home rn Problem: new rn Symptoms: have improved rn Condition: Stable rn Diagnosis - Chest pain, unspecified rn - Essential (primary) hypertension rn Followup: rn - With: Private Physician - When: As needed - Reason: Recheck today's complaints, Re-evaluation by your physician Discharge Instructions: - Discharge Summary Sheet rn - Nonspecific Chest Pain, Adult rn - Hypertension, Adult rn - Pain Without a Known Cause rn - Managing Your Hypertension rn Forms: - Medication Reconciliation Form rn - Thank You Letter rn - Antibiotic lathe turner - Prescription Opioid Use rn - Patient Portal Instructions rn - Leadership Thank You Letter rn Signatures: Dispatcher [employer] Levon Theodore MD MD rn Jose Jung RN RN tm6
--- NOTE | 2023-07-12 02:13 | ER ---
Nurse's Notes [facility] Name: Santos Francisco Age: 37 yrs Sex: Male : 1985 Arrival Date: 07/11/2023 Time: 23:59 Bed 5 Private MD: Diagnosis: Chest pain, unspecified;Essential (primary) hypertension Presentation: 07/12 00:32 Chief complaint: Patient states: I've had chest pain and a headache for two weeks. tm6 Chest pain is sharp on breath 6/10. Headache is 8/10. My throat hurts. I feel bloated in my upper abdomen. Coronavirus screen: Vaccine status: Patient reports being unvaccinated. Ebola Screen: Patient negative for fever greater than or equal to 101.5 degrees Fahrenheit, and additional compatible Ebola Virus Disease symptoms Patient denies exposure to infectious person. Patient denies travel to an Ebola-affected area in the 21 days before illness onset. No symptoms or risks identified at this time. Initial Sepsis Screen: Does the patient meet any 2 criteria? No. Patient's initial sepsis screen is negative. Does the patient have a suspected source of infection? No. Patient's initial sepsis screen is negative. Risk Assessment: Do you want to hurt yourself or someone else? Patient reports no desire to harm self or others. Onset of symptoms was June 28, 2023 at 00:00. 00:32 Method Of Arrival: Ambulatory tm6 00:32 Acuity: OUSMANE 3 tm6 Triage Assessment: 00:35 Headache History: The patient has had previous headaches and this one is different than tm6 previous episodes. General: Appears in no apparent distress. Behavior is calm, cooperative. Pain: Complains of pain in face and chest Pain currently is 8 out of 10 on a pain scale. Quality of pain is described as aching, sharp, Pain began two weeks ago Also complains of no other associated symptoms. EENT: No signs and/or symptoms were reported regarding the EENT system. Neuro: Level of Consciousness is awake, alert, obeys commands, Oriented to person, place, time, situation. Cardiovascular: Reports chest pain, Capillary refill < 3 seconds Patient's skin is warm and dry. Rhythm is sinus rhythm. Respiratory: Airway is patent Respiratory effort is even, unlabored, Respiratory pattern is regular, symmetrical. GI: Abdomen is flat, non-distended, Reports bloating. : No signs and/or symptoms were reported regarding the genitourinary system. Derm: No signs and/or symptoms reported regarding the dermatologic system. Musculoskeletal: No signs and/or symptoms reported regarding the musculoskeletal system. Historical: - Allergies: 00:35 No Known Allergies; tm6 - PMHx: 00:35 Bipolar disorder; Schizophrenia; Seizure; tm6 - PSHx: 00:35 None; tm6 - Immunization history:: Adult Immunizations up to date, Client reports having NOT received the Covid vaccine. Flu vaccine is not up to date. - Social history:: Smoking status: Patient reports the use of cigarette tobacco products, smokes one-half pack cigarettes per day, Patient/guardian denies using alcohol, street drugs. - Family history:: not pertinent. - Hospitalizations: : No recent hospitalization is reported. Screenin:39 [facility] ED Fall Risk Assessment (Adult) History of falling in the last 3 months, tm6 including since admission No falls in past 3 months (0 pts). Abuse screen: Denies threats or abuse. Denies injuries from another. Nutritional screening: No deficits noted. Tuberculosis screening: No symptoms or risk factors identified. Assessment: 00:39 Reassessment: see triage assessment. tm6 02:24 Reassessment: Patient appears in no apparent distress at this time. No changes from tm6 previously documented assessment. Patient and/or family updated on plan of care and expected duration. Pain level reassessed. Patient is alert, oriented x 3, equal unlabored respirations, skin warm/dry/pink. Vital Signs: 00:32 BP 137 / 80; Pulse 87; Resp 17; Temp 99.7(TE); Pulse Ox 99% on R/A; Weight 119.5 kg; tm6 Height 5 ft. 11 in. ; Pain 8/10; 01:00 BP 143 / 80; Pulse 86; Resp 16; Pulse Ox 100% on R/A; km8 02:23 BP 162 / 85; Pulse 88; Resp 19; Pulse Ox 97% ; tm6 00:32 Body Mass Index 36.74 (119.50 kg, 180.34 cm) tm6 00:32 Pain Scale: Adult tm6 [place] Coma Score: 00:39 Eye Response: spontaneous(4). Motor Response: obeys commands(6). Verbal Response: tm6 oriented(5). Total: 15. ED Course: 00:06 Patient arrived in ED. gm2 00:07 Levon Galvan MD is Attending Physician. rn 00:35 Triage completed. tm6 00:35 Arm band placed on right wrist. tm6 00:39 Patient has correct armband on for positive identification. Placed in gown. Bed in low tm6 position. Call light in reach. Side rails up X2. Provided Education on: plan of care. Client placed on continuous cardiac and pulse oximetry monitoring. NIBP monitoring applied. clamper on. Door closed. Noise minimized. 00:39 No provider procedures requiring assistance completed. tm6 00:41 XRAY Chest (1 view) In Process Unspecified. EDMS 00:42 Jose Jung, MILIND is Primary Nurse. tm6 01:25 Inserted saline lock: 22 gauge in left antecubital area, using aseptic technique. tm6 02:25 IV discontinued, intact, bleeding controlled, No redness/swelling at site. Pressure tm6 dressing applied. Administered Medications: 01:33 Drug: Ketorolac IVP 15 mg IVP once Route: IVP; Site: left antecubital; tm6 01:33 Drug: Famotidine IVP 20 mg IVP once; dilute with 10 mL 0.9% NaCl; give over 2 minutes tm6 Route: IVP; Site: left antecubital; Medication: 00:39 VIS not applicable for this client. tm6 Outcome: 02:12 Discharge ordered by . rn 02:24 Discharged to home ambulatory, tm6 02:24 Condition: stable 02:24 Discharge instructions given to patient, Instructed on discharge instructions, follow up and referral plans. Demonstrated understanding of instructions, follow-up care, 02:25 Patient left the ED. tm6 Signatures: Dispatcher [employer] EDMT Levon Galvan MD MD rn Mitchell, Ginger 2 Suly Rebollar RN RN [phone] Jose Jung RN RN tm6
[2023-07-12 05:48] VITALS: BP 162/85; TEMP 99.7; O2SAT 97
--- NOTE | 2023-07-13 11:18 | RAD REPORT ---
EXAM DESCRIPTION: RAD - Chest Single View - 07/12/2023 12:39 am CLINICAL HISTORY: CHEST PAIN COMPARISON: Chest x-ray 11/21/2021 TECHNIQUE: Single AP view of the chest. FINDINGS: Lung volumes adequate. Cardiac silhouette is normal in size. No pneumothorax. No large pleural effusion. No focal consolidation. No acute bony finding. IMPRESSION: No evidence of acute cardiopulmonary disease. Electronically signed by: Maria Eugenia Gregory MD 07/12/2023 12:54 AM DIRECTOR OF HEALTHCARE SYSTEMS Due to temporary technical issues with the PACS/Fluency reporting system, reports are being signed by the in house radiologist without review as a courtesy to ensure prompt reporting. The interpreting r adiologist is fully responsible for the content of the report.
--- NOTE | 2023-07-13 15:02 | EKG ---
Test Date: 2023-07-12 Test Time: 00:46:54 Fuse Maker: ERICK MEASUREMENT RESULTS: Intervals: Rate: 88 VT: 140 QRSD: 112 QT: 352 QTc: 425 [place]gett: P: 35 VT: 140 QRS: 56 T: 45 INTERPRETIVE STATEMENTS: Normal sinus rhythm Low voltage QRS Borderline ECG Compared to ECG 06/19/2023 21:42:38 Low QRS voltage now present Electronically Signed On 07-13-23 14:58:35 PLANT GUIDE by yDlan Lin
== END ==
LOC: ER 23:59
DX: R07.89 Other chest pain (principal); I10 Essential (primary) hypertension
CPT/HCPCS: 71045; 93005